=== PATIENT | male | born 1965 | race Caucasian/White ===

== ENCOUNTER 2017-01-24 19:42 | Observation (INO) ==
--- NOTE | 2017-01-24 19:49 | Emergency Department Note ---
Disposition Clinical Impression: Hyponatremia Urinary tract infection Qualifiers: Urinary tract infection type: catheter-associated UTI Indwelling urinary catheter type: indwelling urethral catheter Encounter type: initial encounter Qualified Code(s): T83.511A - Infection and inflammatory reaction due to indwelling urethral catheter, initial encounter; N39.0 - Urinary tract infection , site not specified Disposition: Admitted As Inpatient Condition: Good Referrals: NO,PCP [Primary Care Provider] - Forms: ED Satisfaction Letter Time of Disposition: 21:53 General Adult HPI - General Chief complaint: ED Urogenital-Male Stated complaint: possible UTI Time Seen by Provider: 01/24/17 19:46 - History of Present Illness HPI Narrative: Patient presents to the emergency department for evaluation of fever. States that he had a temperature up to 101 yesterday which has persisted today though currently is asymptomatic following Motrin administration. He states that he feels well without complaints. He has an indwelling suprapubic catheter and has noticed cloudy urine. He reports a history of MS. Denies headache or neck pain. Denies chest pain cough or shortness of breath. Denies abdominal pain vomiting or diarrhea. Denies rash. - Related Data Home Medications Medication Instructions Recorded Confirmed Abacavir Sulfate/Lamivudine 1 each PO DAILY 10/04/15 10/04/15 [Epzicom Tablet] Alprazolam [Xanax] 2 mg PO HS 10/04/15 10/04/15 Baclofen 30 mg PO QID 10/04/15 10/04/15 Cholecalciferol (Vitamin D3) 5,000 unit PO DAILY 10/04/15 10/04/15 [Vitamin D3] Docusate [Colace] 100 mg PO TID 10/04/15 10/04/15 Efavirenz [Sustiva] 50 mg PO DAILY 10/04/15 10/04/15 Fenofibrate Nanocrystallized 145 mg PO DAILY 10/04/15 10/04/15 [Tricor] Furosemide [Lasix] 40 mg PO DAILY 10/04/15 10/04/15 Gabapentin [Neurontin] 600 mg PO QID 10/04/15 10/04/15 Paroxetine [Paxil] 20 mg PO DAILY 10/04/15 10/04/15 Potassium Chloride [K-Tab ER] 10 meq PO DAILY 10/04/15 10/04/15 Pregabalin [Lyrica] 100 mg PO TID 10/04/15 10/04/15 Tizanidine HCl [Zanaflex] 4 mg PO HS 10/04/15 10/04/15 Warfarin [Coumadin] 4 mg PO 1800 10/04/15 10/04/15 Zolpidem [Ambien] 10 mg PO HS 10/04/15 10/04/15 carBAMazepine [Tegretol] 200 mg PO BID 10/04/15 10/04/15 Allergies Allergy/AdvReac Type Severity Reaction Status Date / Time levofloxacin [From Levaquin] Allergy Hives Verified 10/03/15 23:51 methocarbamol [From Robaxin] Allergy Hives Verified 10/03/15 23:51 Constitutional: Reports: fever, chills Eyes: Denies: vision change ENT ED: Denies: ear pain, throat pain, congestion Cardiovascular: Denies: chest pain, palpitations Respiratory: Denies: cough, dyspnea Gastrointestinal: Denies: abdominal pain, vomiting, diarrhea Genitourinary: Reports: other (Cloudy urine) Musculoskeletal: Denies: back pain Integumentary: Denies: rash Neurological: Denies: headache Past Medical History - Past Medical History Medical history: Reports: DVT, HIV/AIDS, hyperlipidemia, pulmonary embolus Surgical history: Reports: non-contributory (Surgical history includes a suprapubic catheter) Psychiatric history: Reports: anxiety, depression - Social History Smoking Status: Never smoker Smokeless Tobacco Status: No Alcohol use: Reports: none Drug use: Reports: none Physical Exam - General Limitations: no limitations General appearance: alert, in no apparent distress (Resting completely cooperative interactive and pleasant) - Eye Eye exam: Present: normal appearance - ENT ENT exam: normal exam, normal oropharynx, mucous membranes moist, TM's normal bilaterally - Neck Neck exam: Present: normal inspection, full ROM. Absent: meningismus - Cardiovascular Cardiovascular exam: Present: regular rate, normal rhythm, normal heart sounds - Abdominal Exam Abdominal exam: Present: soft, Non-Tender, normal bowel sounds - Extremities Exam Extremities exam: Present: normal capillary refill. Absent: pedal edema, joint swelling, calf tenderness - Neurological Exam Neurological exam: Present: alert, oriented X3 - Psychiatric Psychiatric exam: Present: normal affect, normal mood - Skin Skin exam: Present: warm, dry, intact. Absent: rash Course Vital Signs Temperature 98.0 F 01/24/17 19:43 Pulse Rate 73 01/24/17 19:43 Respiratory Rate 18 01/24/17 19:43 Blood Pressure 98/56 01/24/17 19:43 O2 Sat by Pulse Oximetry 95 01/24/17 19:43 Temperature 98.0 F 01/24/17 19:54 Pulse Rate 73 01/24/17 19:54 Respiratory Rate 18 01/24/17 19:54 Blood Pressure 98/56 01/24/17 19:54 O2 Sat by Pulse Oximetry 95 01/24/17 19:54 Oxygen Delivery Oxygen Delivery Room Air Medical Decision Making - MDM Narrative Medical decision making narrative: Patient has had slight hypotension, patient and his mother well-versed in his medical history and states that his baseline systolic blood pressure is approximately 80. The patient is currently afebrile. He is not tachycardic. His lactate is normal. Patient will be admitted to the hospitalist service secondary to his hyponatremia and urinary tract infection. Patient was administered vitamin K by mouth and his INR would be monitored as well. Patient is not anemic and there are no current signs of bleeding. I discussed the case with Dr. Gonzalez he was amenable to admission to this facility - Lab Data Lab results reviewed: Yes I reviewed the patient's lab results. Result diagrams: 01/24/17 19:56 01/24/17 19:56 Lab Results 01/24/17 01/24/17 01/24/17 Range/Units 19:56 19:56 19:56 WBC 14.4 H (4.3-11.1) K/mcL RBC 3.66 L (4.19-5.50) M/mcL Hgb 11.4 L (12.9-16.9) g/dL Hct 31.4 L (37.5-50.1) % MCV 85.8 (83.0-100.0) fL MCH 31.1 (28.0-33.3) pg MCHC 36.3 H (31.6-35.5) g/dL RDW 12.6 (11.5-14.5) % Plt Count 189 (140-400) K/mcL MPV 8.9 L (9.4-12.4) fL Immature Gran % 0.4 (0-4) % Seg Neutrophils % 87.6 % Lymphocytes % 6.6 % Monocytes % 4.7 % Eosinophils % 0.3 % Basophils % 0.4 % Neutrophils # 12.6 H (1.6-8.9) K/mcL Lymphocytes # 1.0 (0.6-4.6) K/mcL Monocytes # 0.7 (0.0-1.3) K/mcL Eosinophils # 0.0 (0.0-0.6) K/mcL Basophils # 0.1 (0.0-0.2) K/mcL PT 110.7 H* (9.4-12.1) Seconds INR 9.6 H* VBG Lactic Acid (0.5-2.2) mmol/L Sodium 125 L (136-145) mEq/L Potassium 3.7 (3.5-4.5) mEq/L Chloride 93 L (98-109) mEq/L Carbon Dioxide 20 (19-29) mEq/L BUN 14 (8-26) mg/dL Creatinine 0.97 (0.72-1.25) mg/dL Est GFR ( Amer) > 60 (> 60) Est GFR (Non-Af Amer) > 60 (> 60) BUN/Creatinine Ratio 14 (6-26) Glucose 115 H (70-99) mg/dL Calculated Osmolality 261 L (280-300) Calcium 8.6 (8.6-10.8) mg/dL Urine Color (Yellow) Urine Clarity (Clear) Urine pH (5.0-8.0) pH Units Ur Specific [place] (1.010-1.025) Urine Protein (Neg-Trace) mg/dL Urine Glucose (UA) (Normal) mg/dL Urine Ketones (Negative) mg/dL Urine Blood (Negative) Urine Nitrite (Negative) Urine Bilirubin (Negative) Urine Urobilinogen (Normal) mg/dL Ur Leukocyte Esterase (Negative) Urine Microscopic RBC (0-3) per hpf Urine Microscopic WBC (0-3) per hpf Ur Squamous Epith Cells (None-Few) per lpf Amorphous Sediment (Few) Urine Bacteria (None-Few) per hpf Ur Culture Indicated? (NO) 01/24/17 01/24/17 Range/Units 20:20 20:50 WBC (4.3-11.1) K/mcL RBC (4.19-5.50) M/mcL Hgb (12.9-16.9) g/dL Hct (37.5-50.1) % MCV (83.0-100.0) fL MCH (28.0-33.3) pg MCHC (31.6-35.5) g/dL RDW (11.5-14.5) % Plt Count (140-400) K/mcL MPV (9.4-12.4) fL Immature Gran % (0-4) % Seg Neutrophils % % Lymphocytes % % Monocytes % % Eosinophils % % Basophils % % Neutrophils # (1.6-8.9) K/mcL Lymphocytes # (0.6-4.6) K/mcL Monocytes # (0.0-1.3) K/mcL Eosinophils # (0.0-0.6) K/mcL Basophils # (0.0-0.2) K/mcL PT (9.4-12.1) Seconds INR VBG Lactic Acid 1.5 (0.5-2.2) mmol/L Sodium (136-145) mEq/L Potassium (3.5-4.5) mEq/L Chloride (98-109) mEq/L Carbon Dioxide (19-29) mEq/L BUN (8-26) mg/dL Creatinine (0.72-1.25) mg/dL Est GFR ( Amer) (> 60) Est GFR (Non-Af Amer) (> 60) BUN/Creatinine Ratio (6-26) Glucose (70-99) mg/dL Calculated Osmolality (280-300) Calcium (8.6-10.8) mg/dL Urine Color Yellow (Yellow) Urine Clarity Cloudy A (Clear) Urine pH 6.0 (5.0-8.0) pH Units Ur Specific [place] 1.010 (1.010-1.025) Urine Protein Trace (Neg-Trace) mg/dL Urine Glucose (UA) Normal (Normal) mg/dL Urine Ketones Negative (Negative) mg/dL Urine Blood Large H (Negative) Urine Nitrite Negative (Negative) Urine Bilirubin Negative (Negative) Urine Urobilinogen Normal (Normal) mg/dL Ur Leukocyte Esterase Large H (Negative) Urine Microscopic RBC 15-30 H (0-3) per hpf Urine Microscopic WBC 15-30 H (0-3) per hpf Ur Squamous Epith Cells Moderate H (None-Few) per lpf Amorphous Sediment Few (Few) Urine Bacteria Many H (None-Few) per hpf Ur Culture Indicated? YES A (NO) - Radiology Data Radiology results reviewed: Yes I reviewed the patient's radiology results.
[2017-01-24] MEDS ORDERED: 0.9 % Sodium Chloride 1,000 ML IVC ONE (20:00)
[2017-01-24 20:13] LABS: Basophils # 0.1 K/mcL (0.0-0.2); Basophils % 0.4 %; Eosinophils % 0.3 %; Hematocrit 31.4 % (37.5-50.1); Hemoglobin 11.4 g/dL (12.9-16.9); Immature Granulocytes % 0.4 % (0-4); Lymphocytes % 6.6 %; Mean Corpuscular HGB Conc 36.3 g/dL (31.6-35.5); Mean Corpuscular Hemoglobin 31.1 pg (28.0-33.3); Mean Corpuscular Volume 85.8 fL (83.0-100.0); Mean Platelet Volume 8.9 fL (9.4-12.4); Monocytes # 0.7 K/mcL (0.0-1.3); Monocytes % 4.7 %; Neutrophils # 12.6 K/mcL (1.6-8.9); Platelet Count 189 K/mcL (140-400); Red Blood Count 3.66 M/mcL (4.19-5.50); Red Cell Distribution Width 12.6 % (11.5-14.5); Segmented Neutrophils % 87.6 %
[2017-01-24 20:24] LABS: BUN/Creatinine Ratio 14 (6-26); Blood Urea Nitrogen 14 mg/dL (8-26); Calcium 8.6 mg/dL (8.6-10.8); Carbon Dioxide 20 mEq/L (19-29); Chloride 93 mEq/L (98-109); Glucose 115 mg/dL (70-99); Osmolality,Calculated 261 (280-300); Potassium 3.7 mEq/L (3.5-4.5); Sodium 125 mEq/L (136-145); eGFR For African Americans > 60 (> 60); eGFR For Non-African Americans > 60 (> 60)
[2017-01-24 20:52] LABS: Bilirubin,Urine Negative (Negative); Blood,Urine Large (Negative); Clarity,Urine Cloudy (Clear); Color,Urine Yellow (Yellow); Glucose,Urine (UA) Normal (Normal); Ketones,Urine Negative (Negative); Leukocyte Esterase,Urine Large (Negative); Nitrite,Urine Negative (Negative); Protein,Urine Trace mg/dL (Neg-Trace); Urobilinogen,Urine Normal (Normal)
[2017-01-24 21:05] LABS: Prothrombin Time 110.7 Seconds (9.4-12.1)
[2017-01-24 21:06] LABS: INR 9.6
[2017-01-24 21:19] LABS: RBC,Urine 15-30 per hpf (0-3); Squamous Epithelial Cell,Urine Moderate per lpf (None-Few); WBC,Urine 15-30 per hpf (0-3)
[2017-01-24 21:20] LABS: Amorphous Sediment,Urine Few (Few); Bacteria,Urine Many per hpf (None-Few)
[2017-01-24] MEDS ORDERED: *HR* Phytonadione 5 MG TABLET PO ONE (21:50)
[2017-01-24] MEDS ORDERED: Piperacillin/Tazobactam 3.375 GM in D5% in Water (Mini-Bag+) 100 ML IVPB ONE (21:53)
[2017-01-24] MEDS: 0.9 % Sodium Chloride 1,000 ML IVC SCH (22:18)
[2017-01-25] MEDS ORDERED: Piperacillin/Tazobactam 3.375 GM in D5% in Water (Mini-Bag+) 100 ML IVPB SCH (06:00)
[2017-01-25 06:12] LABS: Basophils # 0.1 K/mcL (0.0-0.2); Basophils % 0.4 %; Eosinophils % 0.1 %; Hematocrit 32.4 % (37.5-50.1); Hemoglobin 11.7 g/dL (12.9-16.9); Immature Granulocytes % 0.5 % (0-4); Lymphocytes # 0.5 K/mcL (0.6-4.6); Lymphocytes % 3.5 %; Mean Corpuscular HGB Conc 36.1 g/dL (31.6-35.5); Mean Corpuscular Volume 85.7 fL (83.0-100.0); Mean Platelet Volume 9.5 fL (9.4-12.4); Monocytes # 0.6 K/mcL (0.0-1.3); Monocytes % 4.3 %; Neutrophils # 11.7 K/mcL (1.6-8.9); Platelet Count 197 K/mcL (140-400); Red Blood Count 3.78 M/mcL (4.19-5.50); Red Cell Distribution Width 12.6 % (11.5-14.5); Segmented Neutrophils % 91.2 %
[2017-01-25 06:37] LABS: BUN/Creatinine Ratio 15 (6-26); Blood Urea Nitrogen 13 mg/dL (8-26); Calcium 8.5 mg/dL (8.6-10.8); Carbon Dioxide 20 mEq/L (19-29); Chloride 100 mEq/L (98-109); Glucose 141 mg/dL (70-99); Osmolality,Calculated 276 (280-300); Potassium 3.5 mEq/L (3.5-4.5); Sodium 132 mEq/L (136-145); eGFR For African Americans > 60 (> 60); eGFR For Non-African Americans > 60 (> 60)
[2017-01-25] MEDS ORDERED: EFAVIRENZ PO SCH (09:00)
[2017-01-25] MEDS ORDERED: Cholecalciferol (D-3) 1,000 UNIT TABLET PO SCH (09:00)
[2017-01-25] MEDS ORDERED: carBAMazepine 200 MG TABLET PO SCH (09:00)
[2017-01-25] MEDS ORDERED: LAMIVUDINE PO SCH (09:00)
[2017-01-25] MEDS ORDERED: Fenofibrate 54 MG TABLET PO SCH (09:00)
[2017-01-25] MEDS ORDERED: Baclofen 10 MG TABLET PO SCH (09:00)
[2017-01-25] MEDS ORDERED: ABACAVIR SULFATE PO SCH (09:00)
[2017-01-25] MEDS ORDERED: Gabapentin 300 MG CAPSULE PO SCH (09:00)
[2017-01-25] MEDS: 0.9 % Sodium Chloride 1,000 ML IVC SCH (09:14)
--- NOTE | 2017-01-25 11:47 | Internal Med History&Physical ---
Date of Encounter: 01/25/17 Time of Encounter: 11:15 Assessment and Plan (1) Urinary tract infection Current visit: Yes Status: Acute He was given Rocephin and Zosyn in emergency room. Qualifiers: Urinary tract infection type: catheter-associated UTI Indwelling urinary catheter type: unspecified Encounter type: initial encounter Qualified Code( s): T83.511A - Infection and inflammatory reaction due to indwelling urethral catheter, initial encounter; N39.0 - Urinary tract infection, site not specified (2) Hyponatremia Current visit: Yes Status: Acute His Lasix dose will be reduced. Normal saline IV was ordered through the emergency room. Internal Medicine - H&P: HPI Chief complaint: Fever Admitted From: Home Plans for Post Hospital Care: Home History of present illness: Mr. Mccullough is a 51 year old male who came to emergency room stating he developed a fever the evening of January 23. When it had not resolved by the following day he decided to come to emergency room for evaluation. He was found to have leukocytosis with left shift. It was felt he possibly had UTI although he has chronic suprapubic catheter in place. He was admitted to [facility] floor for ongoing care needs. He states he has had 1 previous urinary infection since the suprapubic catheter was placed approximately 5 years ago. He had indwelling Redd catheter prior to that for neurogenic bladder secondary to multiple sclerosis. He denies other kidney or bladder disorders. His neurologic history is significant for diagnosis of multiple sclerosis 2004. He states he has an aggressive form of the disease and has been bedridden since 2005. He follows regularly with a [facility] neurologist. He denies large distribution strokes or seizures. His infectious disease history is significant for HIV diagnosed 2004. He follows with a [facility] ID specialist. Past Med Surg Social Fam HX - Past Medical History Medical history: DVT, HIV/AIDS, hyperlipidemia, pulmonary embolus Psychiatric history: anxiety, depression - Past Surgical History Surgical History: non-contributory - Social History Smoking Status: Never smoker Smokeless Tobacco Status: No Alcohol use: none Drug use: none Internal Medicine - H&P: Meds Abacavir Sulfate/Lamivudine [Epzicom Tablet] 1 each PO DAILY 10/04/15 [History] Alprazolam [Xanax] 2 mg PO HS 10/04/15 [History] Baclofen 30 mg PO QID 10/04/15 [History] Cholecalciferol (Vitamin D3) [Vitamin D3] 5,000 unit PO DAILY 10/04/15 [History] Docusate [Colace] 100 mg PO TID 10/04/15 [History] Efavirenz [Sustiva] 50 mg PO DAILY 10/04/15 [History] Fenofibrate Nanocrystallized [Tricor] 145 mg PO DAILY 10/04/15 [History] Furosemide [Lasix] 40 mg PO DAILY 10/04/15 [History] Gabapentin [Neurontin] 600 mg PO QID 10/04/15 [History] Paroxetine [Paxil] 20 mg PO DAILY 10/04/15 [History] Potassium Chloride [K-Tab ER] 10 meq PO BID 10/04/15 [History] Pregabalin [Lyrica] 100 mg PO TID 10/04/15 [History] Tizanidine HCl [Zanaflex] 4 mg PO HS 10/04/15 [History] Warfarin [Coumadin] 4 mg PO 1800 10/04/15 [History] Zolpidem [Ambien] 10 mg PO HS 10/04/15 [History] carBAMazepine [Tegretol] 200 mg PO BID 10/04/15 [History] Allergies levofloxacin [From Levaquin] Allergy (Verified 01/24/17 22:01) Hives methocarbamol [From Robaxin] Allergy (Verified 01/24/17 22:01) Hives All Systems PM: A 10-system review of systems was performed and is negative for pertinent findings except as documented above in the HPI. Review of systems: Gen.: He states his weight has been stable past few months Cardiovascular: He has history of DVT/pulmonary embolism several years ago and has remained on Coumadin since then. He denies hypertension AK heart failure or angina. He is nonambulatory. Respiratory: He smoked from age [age] up to 2 packs per day. He denies chronic lung disease and does not wear home oxygen. GI: He denies disorders of his liver gallbladder or exocrine pancreas : As per history of present illness Neurologic: As per history of present illness. He states he has peripheral neuropathy. Endocrine: He has hyperlipidemia but denies diabetes or thyroid disease Hematologic/oncologic: He had anemia on blood work in emergency room. He denies internal malignancies Psychiatric: He has depression but denies anxiety or other mental health issues Musk skeletal: He denies arthritis gout or other bone joint or muscle disorders. - Constitutional Vitals: Temp Pulse Resp BP Pulse Ox 98.7 F 72 14 84/36 94 01/25/17 10:25 01/25/17 10:25 01/25/17 10:25 01/25/17 10:25 01/25/17 10:25 Exam: Gen.: He is well-developed well-nourished male lying in bed who appears in no acute distress HEENT: Head is atraumatic and normocephalic. Eyes: EOMI. There is no scleral icterus. Mouth: Mucosa is moist. Neck: Supple and nontender. There is no thyromegaly or adenopathy noted. Heart: Regular without murmurs gallops or ectopics Lungs: No wheezes or crackles are heard. Abdomen: Soft and nontender. No masses or guarding are noted. He has a superpubic catheter in place Extremities: He is wearing heel protectors. He has foot drop bilaterally. Dorsalis pedis and posterior tibial pulses are trace-1+ palpable bilaterally. His feet are warm to touch. There is no edema. Neurologic: Mental status: He is talkative and seems to be a fair to good historian. His response time is slow to many questions but his answers are appropriate. Cranial nerves: Smile is symmetric. Forehead wrinkles bilaterally. Tongue protrudes midline. EOMI. Motor: There is no pronator drift. Cerebellar: Finger to nose testing shows tremor from arm weakness bilaterally. Skin: Warm and dry Internal Med - H&P Results - Labs CBC & Chem 7: 01/25/17 05:37 01/25/17 05:37 Labs: Short CBC 01/25/17 Range/Units 05:37 WBC 12.8 H (4.3-11.1) K/mcL Hgb 11.7 L (12.9-16.9) g/dL Hct 32.4 L (37.5-50.1) % Plt Count 197 (140-400) K/mcL Neutrophils # 11.7 H (1.6-8.9) K/mcL BMP 01/25/17 05:37 Sodium 132 L D Potassium 3.5 Chloride 100 Carbon Dioxide 20 BUN 13 Creatinine 0.88 Glucose 141 H Calcium 8.5 L - VTE Reasons for not Prescribing Prophylaxis: Not indicated-Anticoagulated or INR therapeutic
--- NOTE | 2017-01-25 12:09 | Discharge Summary ---
Date of Encounter: 01/25/17 Time of Encounter: 11:15 - Discharge Diagnosis (1) Urinary tract infection Priority: Primary Status: Acute Qualifiers: Urinary tract infection type: catheter-associated UTI Indwelling urinary catheter type: unspecified Encounter type: initial encounter Qualified Code( s): T83.511A - Infection and inflammatory reaction due to indwelling urethral catheter, initial encounter; N39.0 - Urinary tract infection, site not specified (2) Hyponatremia Priority: Secondary Status: Acute - Discharge Medications Prescriptions: Lactobacillus [Culturelle] 1 each PO BID #10 cap.sprink Sulfamethoxazole/Trimeth DS [Bactrim DS] 1 each PO BID #10 tablet Home Medications: Abacavir Sulfate/Lamivudine [Epzicom Tablet] 1 each PO DAILY 10/04/15 [History] Alprazolam [Xanax] 2 mg PO HS 10/04/15 [History] Baclofen 30 mg PO QID 10/04/15 [History] Cholecalciferol (Vitamin D3) [Vitamin D3] 5,000 unit PO DAILY 10/04/15 [History] Docusate [Colace] 100 mg PO TID 10/04/15 [History] Efavirenz [Sustiva] 50 mg PO DAILY 10/04/15 [History] Fenofibrate Nanocrystallized [Tricor] 145 mg PO DAILY 10/04/15 [History] Gabapentin [Neurontin] 600 mg PO QID 10/04/15 [History] Paroxetine [Paxil] 20 mg PO DAILY 10/04/15 [History] Potassium Chloride [K-Tab ER] 10 meq PO BID 10/04/15 [History] Pregabalin [Lyrica] 100 mg PO TID 10/04/15 [History] Tizanidine HCl [Zanaflex] 4 mg PO HS 10/04/15 [History] Zolpidem [Ambien] 10 mg PO HS 10/04/15 [History] carBAMazepine [Tegretol] 200 mg PO BID 10/04/15 [History] Furosemide [Lasix] 20 mg PO DAILY #0 01/25/17 [Rx] Lactobacillus [Culturelle] 1 each PO BID #10 cap.sprink 01/25/17 [Rx] Sulfamethoxazole/Trimeth DS [Bactrim DS] 1 each PO BID #10 tablet 01/25/17 [Rx] Warfarin [Coumadin] 4 mg PO 1800 #0 01/25/17 [Rx] Allergies/Adverse Reactions: Allergies levofloxacin [From Levaquin] Allergy (Verified 01/24/17 22:01) Hives methocarbamol [From Robaxin] Allergy (Verified 01/24/17 22:01) Hives Date of admission: 01/24/17 22:04 Primary care physician: Anika Crane - Patient Status Disposition: Home, Self-Care Condition: Good Functional capacity at discharge: bed bound Overall status at discharge: patient is progressing back to baseline - Discharge Instructions Follow Up With: Anika Crane MD [Non-Partnered Physician] - 1 week - Diet and Activity Activity: resume usual activities as tolerated Diet: advance to your usual diet Hospital course: Mr. Mccullough is a 51 year old male who came to emergency room stating he developed a fever the evening of January 23. When it had not resolved by the following day he decided to come to emergency room for evaluation. He was found to have leukocytosis with left shift. It was felt he possibly had UTI although he has chronic suprapubic catheter in place. He was admitted to [facility] for ongoing care needs. Initial orders were written by the emergency room physician. I saw him on January 25 and performed a history, physical and discharge. His temperature lonnie to 100.3 in the brand lead hours of January 25 but had returned to normal range by the time I saw him. WBC improved to 12.8 on January 25. I felt he could be discharged home on oral antibiotic. He will be given Septra DS for 5 days with probiotic. His Lasix dose will be reduced to 20 mg daily. His sodium had improved to 132 on the day of discharge. He was given a dose of vitamin K and his INR had improved to 4.0 on the day of discharge. He will hold Coumadin for 3 days at discharge. His PCP can follow up on labs as needed. He will be discharged home to follow with his PCP within one week. - Time Spent with Patient Total time spent providing and/or coordinating discharge services: - Constitutional Vitals: Temp Pulse Resp BP Pulse Ox 98.7 F 72 14 84/36 94 01/25/17 10:25 01/25/17 10:25 01/25/17 10:25 01/25/17 10:25 01/25/17 10:25 - VTE Reasons for not Prescribing Prophylaxis: Not indicated-Anticoagulated or INR therapeutic
[2017-01-25 13:44] VITALS: BP 93/49
[2017-01-25 16:48] LABS: blaKPC Carbapenem-Resist Gene Not Detected (Not Detect); mecA Methicillin-Resist Gene Not Detected (Not Detect)
[2017-01-25 16:49] LABS: Acinetobacter baumannii by PCR Not Detected (Not Detect); Enterococcus by PCR Not Detected (Not Detect); Staphylococcus aureus by PCR Not Detected (Not Detect); Streptococcus agalactiae(B)PCR Not Detected (Not Detect); Streptococcus by PCR Not Detected (Not Detect); Streptococcus pneumoniae PCR Not Detected (Not Detect); Streptococcus pyogenes (A) PCR Not Detected (Not Detect); vanA/B Vancomycin-Resist Genes Not Detected (Not Detect)
[2017-01-25 16:50] LABS: Candida albicans by PCR Not Detected (Not Detect); Candida glabrata by PCR Not Detected (Not Detect); Candida krusei by PCR Not Detected (Not Detect); Candida parapsilosis by PCR Not Detected (Not Detect); Candida tropicalis by PCR Not Detected (Not Detect); Escherichia coli by PCR ***DETECTED*** (Not Detect); Klebsiella oxytoca by PCR Not Detected (Not Detect); Klebsiella pneumoniae by PCR Not Detected (Not Detect); Pseudomonas aeruginosa by PCR Not Detected (Not Detect); Serratia marcescens by PCR Not Detected (Not Detect)
== END 2017-01-25 14:25 | disposition home or self-care (01) ==
LOC: EMEROOPIK 19:42 → INPPIK 19:42
PROVIDERS: ADMIT Internal Medicine; ATTEND Internal Medicine

== ENCOUNTER 2018-12-16 01:30 | Inpatient (IN) ==
[2018-12-16] MEDS ORDERED: 0.9 % Sodium Chloride 1,000 ML IVC ONE ×2 (01:49→03:48)
--- NOTE | 2018-12-16 01:52 | Emergency Department Note ---
Disposition Clinical Impression: Prolonged INR Urinary tract infection Qualifiers: Urinary tract infection type: site unspecified Hematuria presence: with hematuria Qualified Code(s): N39.0 - Urinary tract infection, site not specified; R31.9 - Hematuria, unspecified Disposition: Admitted As Inpatient Condition: Fair Referrals: Anika Crane MD [Primary Care Provider] - Forms: ED Satisfaction Letter Time of Disposition: 04:01 Male Urogenital HPI - General Chief complaint: ED Urogenital-Male Stated complaint: blood in urine Time Seen by Provider: 12/16/18 01:42 Source: patient, family, EMS Mode of arrival: EMS Limitations: physical limitation Nursing Notes Reviewed: Yes Vital Signs Reviewed: Yes - History of Present Illness Pt Subjective Complaint: other (Hematuria) Onset (ago): hour(s) (Today) Duration: constant Location: other (Coming through suprapubic catheter) Improves with: none Worsens with: none indwelling catheter Reports: fever (Sat 101 temperature), other (Patient has had a cough over the past week and recently took a Z-Mark for that. He does not feel like its any worse but it does not feel like its any better either) - Related Data Home Medications Medication Instructions Recorded Confirmed Abacavir Sulfate/Lamivudine 1 each PO DAILY 10/04/15 12/16/18 [Epzicom Tablet] Alprazolam [Xanax] 2 mg PO HS 10/04/15 12/16/18 Baclofen 30 mg PO QID 10/04/15 12/16/18 Cholecalciferol (Vitamin D3) 5,000 unit PO DAILY 10/04/15 12/16/18 [Vitamin D3] Docusate [Colace] 100 mg PO TID 10/04/15 12/16/18 Efavirenz [Sustiva] 50 mg PO DAILY 10/04/15 12/16/18 Gabapentin [Neurontin] 600 mg PO QID 10/04/15 12/16/18 Paroxetine [Paxil] 20 mg PO DAILY 10/04/15 12/16/18 Potassium Chloride [K-Tab ER] 10 meq PO BID 10/04/15 12/16/18 Tizanidine HCl [Zanaflex] 4 mg PO HS 10/04/15 12/16/18 Zolpidem [Ambien] 10 mg PO HS 10/04/15 12/16/18 carBAMazepine [Tegretol] 200 mg PO BID 10/04/15 12/16/18 Furosemide [Lasix] 40 mg PO DAILY 04/29/18 12/16/18 Glatiramer Acetate [Copaxone] 40 mg SQ QMWF 04/29/18 12/16/18 Oxycodone HCl/Acetaminophen 1 each PO Q6H 04/29/18 12/16/18 [Percocet 5-325 mg Tablet] Warfarin [Coumadin] 2 mg PO QMWF 04/29/18 12/16/18 Previous Rx's Medication Instructions Recorded Ascorbic Acid [Vitamin C] 500 mg PO DAILY@0630 #30 tab 04/05/17 Lactobacillus [Culturelle] 1 each PO BID #6 cap.sprink 04/05/17 Allergies Allergy/AdvReac Type Severity Reaction Status Date / Time atorvastatin [From Lipitor] Allergy Muscle Pain Verified 12/16/18 01:38 levofloxacin [From Levaquin] Allergy Hives Verified 04/28/18 23:59 methocarbamol [From Robaxin] Allergy Hives Verified 04/28/18 23:59 All systems ED: reviewed and negative except as stated. Constitutional: Reports: fever, chills ENT ED: Denies: ear pain, throat pain, congestion Cardiovascular: Denies: chest pain, palpitations Respiratory: Reports: cough. Denies: dyspnea, wheezes Gastrointestinal: Denies: abdominal pain, vomiting, diarrhea Genitourinary: Reports: hematuria Integumentary: Denies: rash Past Medical History - Past Medical History Attestation: Yes The following information was validated with the patient. Source: patient, old records reviewed, obtained from family, nursing notes reviewed Medical history: Reports: DVT, HIV/AIDS, hyperlipidemia, pulmonary embolus, other Surgical history: Reports: non-contributory Psychiatric history: Reports: anxiety, depression - Social History Smoking Status: Former smoker Smokeless Tobacco Status: No Alcohol use: Reports: none Drug use: Reports: none Physical Exam - General Limitations: physical limitation General appearance: alert, in no apparent distress - Head Head exam: atraumatic, normocephalic, normal inspection - Eye Eye exam: Present: normal appearance, PERRL, EOMI. Absent: scleral icterus, conjunctival injection - ENT ENT exam: normal exam, normal oropharynx, mucous membranes moist, normal external ear exam - Neck Neck exam: Present: normal inspection, full ROM, trachea midline. Absent: meningismus - Chest Chest inspection: Present: normal inspection, symmetric chest wall rise. Absent: tenderness - Respiratory Respiratory exam: Present: normal lung sounds bilaterally. Absent: respiratory distress, wheezes - Cardiovascular Cardiovascular exam: Present: regular rate, normal rhythm, irregular rhythm - Abdominal Exam Abdominal Exam: Present: soft, Non-Tender, normal bowel sounds - Extremities Exam Extremities exam: Absent: tenderness - Neurological Exam Neurological exam: Present: alert, oriented X3 - Psychiatric Psychiatric exam: Present: normal affect, normal mood - Skin Skin exam: Present: warm, dry. Absent: rash Course Course Narrative: Patient presents with a chief complaint of hematuria coming through his suprapubic catheter. In the past its been related to infection. Actually has a 101 temperature on arrival. He has had a cough that was recently treated with antibiotics so I think we have to consider pneumonia as well. I am doing a septic workup on the patient. I am giving him fluids and I am going to start with Rocephin right off the bat. Disposition will be based on diagnostic resul ts and reevaluation. - Reevaluation(s) Reevaluation #1: Patient's urine came back positive. The chest x-ray was clear. She has urinary tract infection with elevated white count and a fever. He needs to be admitted to the hospital. Is getting a little bit tachycardic although his blood pressure is okay. He is getting second liter of fluid. INR was elevated as well and since he has the hematuria I went ahead and give him a dose of 2.5 mg of vitamin K by mouth. I discussed case with the hospitalist and will be admitting the patient to the hospital. Time: 04:00 - Consultations Consultation #1: Dr. Gonzalez, hospitalist - I discussed the case with the hospitalist. He gave orders to admit the patient. Time: 03:59 Vital Signs Temperature 101.2 F H 12/16/18 01:30 Pulse Rate 94 12/16/18 01:30 Respiratory Rate 16 12/16/18 01:30 Blood Pressure 143/77 12/16/18 01:30 O2 Sat by Pulse Oximetry 96 12/16/18 01:30 Temperature 101.2 F H 12/16/18 01:30 Pulse Rate 122 12/16/18 03:30 Respiratory Rate 16 12/16/18 03:30 Blood Pressure 125/88 12/16/18 03:30 O2 Sat by Pulse Oximetry 96 12/16/18 03:30 Oxygen Delivery Oxygen Delivery Room Air Urogenital-Male - Medical Records Medical records reviewed: Yes I reviewed the patient's medical records. - Lab Data Lab results reviewed: Yes I reviewed the patient's lab results. Result diagrams: 12/16/18 02:20 12/16/18 02:20 Lab Results 12/16/18 12/16/18 12/16/18 Range/Units 02:20 02:20 02:20 WBC 21.0 H (4.3-11.1) K/mcL RBC 5.33 (4.19-5.50) M/mcL Hgb 16.3 (12.9-16.9) g/dL Hct 46.5 (37.5-50.1) % MCV 87.2 (83.0-100.0) fL MCH 30.6 (28.0-33.3) pg MCHC 35.1 (31.6-35.5) g/dL RDW 13.3 (11.5-14.5) % Plt Count 349 (140-400) K/mcL MPV 9.3 L (9.4-12.4) fL Immature Gran % 0.5 (0-4) % Seg Neutrophils % 88.0 % Lymphocytes % 6.5 % Monocytes % 4.4 % Eosinophils % 0.3 % Basophils % 0.3 % Neutrophils # 18.5 H (1.6-8.9) K/mcL Lymphocytes # 1.4 (0.6-4.6) K/mcL Monocytes # 0.9 (0.0-1.3) K/mcL Eosinophils # 0.1 (0.0-0.6) K/mcL Basophils # 0.1 (0.0-0.2) K/mcL PT (9.4-12.1) Seconds INR APTT (26.0-36.0) Seconds Heparin Anti-Xa, Unfract (0.30-0.70) IU/mL Sodium 133 L (136-145) mEq/L Potassium 3.8 (3.5-5.1) mEq/L Chloride 98 (98-107) mEq/L Carbon Dioxide 28 (23-29) mEq/L BUN 6 (6-20) mg/dL Creatinine 0.83 (0.70-1.30) mg/dL Est GFR ( Amer) > 60 (> 60) Est GFR (Non-Af Amer) > 60 (> 60) BUN/Creatinine Ratio 7 (6-26) Glucose 129 H (70-105) mg/dL Calculated Osmolality 275 L (280-300) Lactic Acid 1.5 (0.5-2.2) mmol/L Calcium 9.4 (8.6-10.3) mg/dL Troponin I < 0.03 (< 0.04) ng/mL Urine Color (Yellow) Urine Clarity (Clear) Urine pH (5.0-8.0) pH Units Ur Specific [place] (1.010-1.025) Urine Protein (Neg-Trace) mg/dL Urine Glucose (UA) (Normal) mg/dL Urine Ketones (Negative) mg/dL Urine Blood (Negative) Urine Nitrite (Negative) Urine Bilirubin (Negative) Urine Urobilinogen (Normal) mg/dL Ur Leukocyte Esterase (Negative) Urine Microscopic RBC (0-3) per hpf Urine Microscopic WBC (0-3) per hpf Ur Culture Indicated? (NO) 12/16/18 12/16/18 Range/Units 02:20 03:04 WBC (4.3-11.1) K/mcL RBC (4.19-5.50) M/mcL Hgb (12.9-16.9) g/dL Hct (37.5-50.1) % MCV (83.0-100.0) fL MCH (28.0-33.3) pg MCHC (31.6-35.5) g/dL RDW (11.5-14.5) % Plt Count (140-400) K/mcL MPV (9.4-12.4) fL Immature Gran % (0-4) % Seg Neutrophils % % Lymphocytes % % Monocytes % % Eosinophils % % Basophils % % Neutrophils # (1.6-8.9) K/mcL Lymphocytes # (0.6-4.6) K/mcL Monocytes # (0.0-1.3) K/mcL Eosinophils # (0.0-0.6) K/mcL Basophils # (0.0-0.2) K/mcL PT 72.3 H* (9.4-12.1) Seconds INR 6.4 H* APTT 113.8 H* (26.0-36.0) Seconds Heparin Anti-Xa, Unfract 0.04 L (0.30-0.70) IU/mL Sodium (136-145) mEq/L Potassium (3.5-5.1) mEq/L Chloride (98-107) mEq/L Carbon Dioxide (23-29) mEq/L BUN (6-20) mg/dL Creatinine (0.70-1.30) mg/dL Est GFR ( Amer) (> 60) Est GFR (Non-Af Amer) (> 60) BUN/Creatinine Ratio (6-26) Glucose (70-105) mg/dL Calculated Osmolality (280-300) Lactic Acid (0.5-2.2) mmol/L Calcium (8.6-10.3) mg/dL Troponin I (< 0.04) ng/mL Urine Color Red A (Yellow) Urine Clarity Slightly Cloudy A (Clear) Urine pH 7.0 (5.0-8.0) pH Units Ur Specific [place] 1.015 (1.010-1.025) Urine Protein 100 H (Neg-Trace) mg/dL Urine Glucose (UA) Normal (Normal) mg/dL Urine Ketones Trace H (Negative) mg/dL Urine Blood Large H (Negative) Urine Nitrite Positive A (Negative) Urine Bilirubin Small H (Negative) Urine Urobilinogen Normal (Normal) mg/dL Ur Leukocyte Esterase Large H (Negative) Urine Microscopic RBC TNTC H (0-3) per hpf Urine Microscopic WBC Present (0-3) per hpf Ur Culture Indicated? YES A (NO) - Radiology Data Radiology results reviewed: Yes I reviewed the patient's radiology results.
[2018-12-16 02:44] LABS: Basophils # 0.1 K/mcL (0.0-0.2); Basophils % 0.3 %; Eosinophils # 0.1 K/mcL (0.0-0.6); Eosinophils % 0.3 %; Hematocrit 46.5 % (37.5-50.1); Hemoglobin 16.3 g/dL (12.9-16.9); Immature Granulocytes % 0.5 % (0-4); Lymphocytes # 1.4 K/mcL (0.6-4.6); Lymphocytes % 6.5 %; Mean Corpuscular HGB Conc 35.1 g/dL (31.6-35.5); Mean Corpuscular Hemoglobin 30.6 pg (28.0-33.3); Mean Corpuscular Volume 87.2 fL (83.0-100.0); Mean Platelet Volume 9.3 fL (9.4-12.4); Monocytes # 0.9 K/mcL (0.0-1.3); Monocytes % 4.4 %; Platelet Count 349 K/mcL (140-400); Red Blood Count 5.33 M/mcL (4.19-5.50); Red Cell Distribution Width 13.3 % (11.5-14.5)
[2018-12-16 02:51] LABS: Neutrophils # 18.5 K/mcL (1.6-8.9)
[2018-12-16 03:03] LABS: INR 6.4; Prothrombin Time 72.3 Seconds (9.4-12.1)
[2018-12-16 03:04] LABS: BUN/Creatinine Ratio 7 (6-26); Blood Urea Nitrogen 6 mg/dL (6-20); Calcium 9.4 mg/dL (8.6-10.3); Carbon Dioxide 28 mEq/L (23-29); Chloride 98 mEq/L (98-107); Glucose 129 mg/dL (70-105); Osmolality,Calculated 275 (280-300); Potassium 3.8 mEq/L (3.5-5.1); Sodium 133 mEq/L (136-145); eGFR For Non-African Americans > 60 (> 60)
[2018-12-16 03:05] LABS: Troponin I < 0.03 ng/mL (< 0.04)
[2018-12-16 03:07] LABS: Bilirubin,Urine Small (Negative); Blood,Urine Large (Negative); Clarity,Urine Slightly Cloudy (Clear); Color,Urine Red (Yellow); Glucose,Urine (UA) Normal (Normal); Ketones,Urine Trace mg/dL (Negative); Leukocyte Esterase,Urine Large (Negative); Nitrite,Urine Positive (Negative); Protein,Urine 100 mg/dL (Neg-Trace); Specific Gravity,Urine 1.015 (1.010-1.025); Urobilinogen,Urine Normal (Normal)
[2018-12-16 03:08] LABS: Activated Partial Thrombo Time 113.8 Seconds (26.0-36.0)
[2018-12-16 03:13] LABS: Heparin anti-factor XA UFH 0.04 IU/mL (0.30-0.70)
[2018-12-16 03:13] LABS: RBC,Urine TNTC per hpf (0-3); WBC,Urine Present per hpf (0-3)
[2018-12-16] MEDS ORDERED: Ondansetron 4 MG/2 ML VIAL IVP ONE (03:55)
[2018-12-16] MEDS ORDERED: *HR* Phytonadione 5 MG TABLET PO ONE ×3 (03:56→08:45)
[2018-12-16] MEDS ORDERED: Gabapentin 300 MG CAPSULE PO SCH ×2 (04:02→09:00)
[2018-12-16] MEDS ORDERED: Baclofen 10 MG TABLET PO SCH ×2 (04:04→09:00)
[2018-12-16] MEDS ORDERED: 0.9 % Sodium Chloride 1,000 ML IVC SCH (04:41)
[2018-12-16] MEDS ORDERED: Ondansetron 4 MG/2 ML VIAL IVP PRN (04:41)
[2018-12-16] MEDS ORDERED: Naloxone 0.4 MG/ML INJ IVP PRN (04:41)
[2018-12-16] MEDS: Ascorbic Acid 500 MG TABLET PO SCH (05:38)
[2018-12-16] MEDS: *HR* OxyCODONE/APAP 5/325 TABLET PO SCH ×4 (05:39→22:40)
[2018-12-16] MEDS: Baclofen 10 MG TABLET PO SCH ×4 (08:43→22:06)
[2018-12-16] MEDS: Gabapentin 300 MG CAPSULE PO SCH ×4 (08:44→22:05)
[2018-12-16] MEDS: Furosemide 40 MG TABLET PO SCH (08:45)
[2018-12-16] MEDS: EFAVIRENZ PO SCH (08:45)
[2018-12-16] MEDS: ABACAVIR SULFATE PO SCH (08:45)
[2018-12-16] MEDS: Cholecalciferol (D-3) 1,000 UNIT TABLET PO SCH (08:45)
[2018-12-16] MEDS: LAMIVUDINE PO SCH (08:45)
[2018-12-16] MEDS: carBAMazepine 200 MG TABLET PO SCH ×2 (08:45→22:05)
[2018-12-16] MEDS: cefTRIAXone 1,000 MG in Water for inj. (sterile) 20 ML 10 ML IVPB SCH (08:46)
[2018-12-16] MEDS ORDERED: Lactobacillus 1 EACH CAP.SPRINK PO SCH (09:00)
[2018-12-16] MEDS ORDERED: (Glatiramer Acetate [Copaxone] 40 MG) SQ SCH (09:00)
--- NOTE | 2018-12-16 12:07 | Internal Med History&Physical ---
Date of Encounter: 12/16/18 Time of Encounter: 11:35 Assessment and Plan (1) Urinary tract infection Current visit: Yes Status: Acute He was given Rocephin in emergency room. This will be continued with lactobacillus. Urine culture has been ordered. Qualifiers: Urinary tract infection type: site unspecified Hematuria presence: with hematuria Qualified Code(s): N39.0 - Urinary tract infection, site not specified; R31.9 - Hematuria, unspecified (2) Prolonged INR Current visit: Yes Status: Acute Coumadin has been held and vitamin K was ordered. Repeat INR will be checked in a.m. Internal Medicine - H&P: HPI Chief complaint: Hematuria Admitted From: Emergency Dept Plans for Post Hospital Care: Home History of present illness: Mr. Mccullough is a 53 year old male who came to emergency room stating his home health aide had noted hematuria in his catheter collection bag [place] hours earlier. She changed the suprapubic catheter but the hematuria persisted. He came to emergency room was found to have leukocytosis with left shift and elevated INR. He was admitted to [facility] floor for ongoing care needs. He was hospitalized last at [facility] March 2017 with diagnosis of UTI. He reports he has had 3 previous significant urinary infections since a suprapubic catheter was placed approximately 2011. He had indwelling Redd catheter prior to that for neurogenic bladder secondary to multiple sclerosis. He denies other kidney or bladder disorders. He reports he took a Z-Mark for "cough" finishing 12/13/2018. Past Med Surg Social Fam HX - Past Medical History Medical history: DVT, HIV/AIDS, hyperlipidemia, pulmonary embolus, other Additional medical history: MS Psychiatric history: anxiety, depression - Past Surgical History Surgical History: non-contributory - Social History Smoking Status: Former smoker Smokeless Tobacco Status: No Alcohol use: none Drug use: none Internal Medicine - H&P: Meds Abacavir Sulfate/Lamivudine [Epzicom Tablet] 1 each PO DAILY 10/04/15 [History] Alprazolam [Xanax] 2 mg PO HS 10/04/15 [History] Baclofen 30 mg PO QID 10/04/15 [History] Cholecalciferol (Vitamin D3) [Vitamin D3] 5,000 unit PO DAILY 10/04/15 [History] Docusate [Colace] 100 mg PO TID 10/04/15 [History] Efavirenz [Sustiva] 50 mg PO DAILY 10/04/15 [History] Gabapentin [Neurontin] 600 mg PO QID 10/04/15 [History] Paroxetine [Paxil] 20 mg PO DAILY 10/04/15 [History] Potassium Chloride [K-Tab ER] 10 meq PO BID 10/04/15 [History] Tizanidine HCl [Zanaflex] 4 mg PO HS 10/04/15 [History] Zolpidem [Ambien] 10 mg PO HS 10/04/15 [History] carBAMazepine [Tegretol] 200 mg PO BID 10/04/15 [History] Ascorbic Acid [Vitamin C] 500 mg PO DAILY@0630 #30 tab 04/05/17 [Rx] Lactobacillus [Culturelle] 1 each PO BID #6 cap.sprink 04/05/17 [Rx] Furosemide [Lasix] 40 mg PO DAILY 04/29/18 [History] Glatiramer Acetate [Copaxone] 40 mg SQ QMWF 04/29/18 [History] Oxycodone HCl/Acetaminophen [Percocet 5-325 mg Tablet] 1 each PO Q6H 04/29/18 [History] Warfarin [Coumadin] 2 mg PO QMWF 04/29/18 [History] Allergy/AdvReac Type Severity Reaction Status Date / Time atorvastatin [From Lipitor] Allergy Muscle Pain Verified 12/16/18 01:38 levofloxacin [From Levaquin] Allergy Hives Verified 04/28/18 23:59 methocarbamol [From Robaxin] Allergy Hives Verified 04/28/18 23:59 All Systems PM: A 10-system review of systems was performed and is negative for pertinent findings except as documented above in the HPI. Review of systems: Review of systems from his March 2017 [facility] hospitalization were reviewed and revised as below. Gen.: He states his weight has been stable the past few months. I doubt recorded admission weight of 51.71 kg is accurate. Cardiovascular: He has history of DVT/pulmonary embolism several years ago and has remained on Coumadin since then. He reports pro times have been stable on recent checks. He took Z-Mark within the past week as per history of present il lness. He denies hypertension CT heart failure or angina. He is nonambulatory. Respiratory: He smoked from age [age] up to 2 packs per day. He denies chronic lung disease and does not wear home oxygen. GI: He denies disorders of his liver gallbladder or exocrine pancreas : As per history of present illness Neurologic: He was diagnosed with MS 2004. He reports he has an aggressive form of the disease and has been bedridden since 2005. He follows with a [facility] neurologist. He denies large distribution strokes or seizures. He states he has peripheral neuropathy. Infectious disease: He was diagnosed with HIV 2004 and follows with a [facility] area ID specialist Endocrine: He has hyperlipidemia but denies diabetes or thyroid disease Hematologic/oncologic: He has had anemia in the past which has now resolved. He denies internal malignancies Psychiatric: He has depression but denies anxiety or other mental health issues Musk skeletal: He denies arthritis gout or other bone joint or muscle disorders. - Constitutional Vitals: Temp Pulse Resp BP Pulse Ox 98.1 F 106 18 92/53 94 12/16/18 10:15 12/16/18 10:15 12/16/18 10:15 12/16/18 10:15 12/16/18 10:15 Exam: Gen.: He is a well-developed well-nourished male lying in bed who appears in no acute distress at present time HEENT: Head is atraumatic and normocephalic. Eyes: EOMI. There is no scleral icterus. Mouth: Mucosa is moist. Neck: Supple and nontender. There is no thyromegaly or adenopathy noted. Heart: Regular without murmurs gallops or ectopics Lungs: No wheezes or crackles are heard. Abdomen: Soft and nontender. No masses or guarding are noted. Extremities: There is no cyanosis of his fingernails. He has dropfoot bilat erally and atrophy of the calf muscles. There is no pitting edema. Neurologic: Mental status: He is talkative and a good historian. Cranial nerves: Smile is symmetric. Forehead wrinkles bilaterally. Tongue protrudes midline. EOMI. Motor: There is no pronator drift. Cerebellar: Finger to nose is intact bilaterally. Skin: Warm and dry Internal Med - H&P Results - Labs CBC & Chem 7: 12/16/18 02:20 12/16/18 02:20 Labs: Short CBC 12/16/18 Range/Units 02:20 WBC 21.0 H (4.3-11.1) K/mcL Hgb 16.3 (12.9-16.9) g/dL Hct 46.5 (37.5-50.1) % Plt Count 349 (140-400) K/mcL Neutrophils # 18.5 H (1.6-8.9) K/mcL BMP 12/16/18 02:20 Sodium 133 L Potassium 3.8 Chloride 98 Carbon Dioxide 28 BUN 6 Creatinine 0.83 Glucose 129 H Calcium 9.4 Cardiac Enzymes 12/16/18 Range/Units 02:20 Troponin I < 0.03 (< 0.04) ng/mL Urine 12/16/18 Range/Units 03:04 Urine Color Red A (Yellow) Urine Clarity Slightly Cloudy A (Clear) Urine pH 7.0 (5.0-8.0) pH Units Ur Specific [place] 1.015 (1.010-1.025) Urine Protein 100 H (Neg-Trace) mg/dL Urine Glucose (UA) Normal (Normal) mg/dL - Impressions ITS Impressions Chest X-Ray 12/16/18 01:48 IMPRESSION: 1. No active pulmonary disease. D/ / Lee Glaser MD / Lee Glaser MD Interpreting Provider: Lee Glaser MD - VTE Reasons for not Prescribing Prophylaxis: Not indicated-Anticoagulated or INR therapeutic
[2018-12-16] MEDS ORDERED: ALPRAZolam 1 MG TABLET PO SCH (21:00)
[2018-12-16] MEDS ORDERED: tiZANidine 4 MG TABLET PO SCH (21:00)
[2018-12-16] MEDS: Lactobacillus 1 EACH CAP.SPRINK PO SCH (22:06)
[2018-12-17] MEDS: *HR* OxyCODONE/APAP 5/325 TABLET PO SCH ×2 (06:43→09:54)
[2018-12-17] MEDS: Ascorbic Acid 500 MG TABLET PO SCH (06:46)
[2018-12-17 07:11] LABS: Basophils # 0.1 K/mcL (0.0-0.2); Basophils % 0.5 %; Eosinophils # 0.2 K/mcL (0.0-0.6); Eosinophils % 1.4 %; Hematocrit 36.8 % (37.5-50.1); Hemoglobin 12.8 g/dL (12.9-16.9); Immature Granulocytes % 0.5 % (0-4); Lymphocytes # 2.3 K/mcL (0.6-4.6); Mean Corpuscular HGB Conc 34.8 g/dL (31.6-35.5); Mean Corpuscular Hemoglobin 30.3 pg (28.0-33.3); Mean Corpuscular Volume 87.2 fL (83.0-100.0); Mean Platelet Volume 9.5 fL (9.4-12.4); Monocytes # 0.7 K/mcL (0.0-1.3); Monocytes % 6.3 %; Neutrophils # 7.3 K/mcL (1.6-8.9); Platelet Count 274 K/mcL (140-400); Red Blood Count 4.22 M/mcL (4.19-5.50); Red Cell Distribution Width 13.4 % (11.5-14.5); Segmented Neutrophils % 69.3 %
[2018-12-17 07:18] LABS: INR 1.7; Prothrombin Time 19.2 Seconds (9.4-12.1)
[2018-12-17] MEDS: carBAMazepine 200 MG TABLET PO SCH (09:36)
[2018-12-17] MEDS: Baclofen 10 MG TABLET PO SCH ×2 (09:36→14:40)
[2018-12-17] MEDS: Gabapentin 300 MG CAPSULE PO SCH ×2 (09:36→14:40)
[2018-12-17] MEDS: Cholecalciferol (D-3) 1,000 UNIT TABLET PO SCH (09:36)
[2018-12-17] MEDS: ABACAVIR SULFATE PO SCH (09:37)
[2018-12-17] MEDS: EFAVIRENZ PO SCH (09:37)
[2018-12-17] MEDS: Lactobacillus 1 EACH CAP.SPRINK PO SCH (09:37)
[2018-12-17] MEDS: LAMIVUDINE PO SCH (09:37)
[2018-12-17] MEDS: cefTRIAXone 1,000 MG in Water for inj. (sterile) 20 ML 10 ML IVPB SCH (09:37)
[2018-12-17] MEDS: Furosemide 40 MG TABLET PO SCH (09:54)
[2018-12-17 14:46] VITALS: BP 92/60
--- NOTE | 2018-12-17 15:40 | Discharge Summary ---
Orders not resulted at time of discharge: Pending orders 12/16/18 02:35 Culture,Blood [BC] Stat Date of Encounter: 12/17/18 Time of Encounter: 15:32 - Discharge Diagnosis (1) Urinary tract infection Priority: Primary Status: Acute Qualifiers: Urinary tract infection type: site unspecified Hematuria presence: with hematuria Qualified Code(s): N39.0 - Urinary tract infection, site not specified; R31.9 - Hematuria, unspecified (2) Prolonged INR Priority: Secondary Status: Resolved Hospital course: Mr. Mccullough is a 53 year old male who came to emergency room stating his home health aide had noticed hematuria in his catheter collection bag a few hours earlier. She changed the suprapubic catheter but the hematuria persisted. He came to emergency room and was found to have leukocytosis with left shift and elevated INR. He was admitted to [facility] floor for ongoing care needs. Initial orders were written by the emergency room physician. I saw him on December 16 and performed the history and physical. He was started on Rocephin empirica lly in emergency room. Lactobacillus was added. Urine culture report showed mixed organisms. WBC normalized to 10.6 with resolution of left shift by December 17. He will continue with antibiotics and probiotic for 2 additional days at discharge. Vitamin K was given in emergency room for hematuria with elevated INR. The INR had decreased to 1.7 by the following day. He will resume Coumadin at his home dose regimen of 2 mg/3 mg every other day alternating. Hemoglobin decrease to 12.8 on December 17. Hematuria had cleared. His PCP can monitor labs. He will follow with his PCP within 1 week. - Time Spent with Patient Total time spent providing and/or coordinating discharge services: - Discharge Medications Prescriptions: New Sulfamethoxazole/Trimeth DS [Bactrim DS] 1 each PO BID #4 tablet Continued Zolpidem [Ambien] 10 mg PO HS Efavirenz [Sustiva] 50 mg PO DAILY Abacavir Sulfate/Lamivudine [Epzicom Tablet] 1 each PO DAILY Tizanidine HCl [Zanaflex] 4 mg PO HS Baclofen 30 mg PO QID Alprazolam [Xanax] 2 mg PO HS Cholecalciferol (Vitamin D3) [Vitamin D3] 5,000 unit PO DAILY Docusate [Colace] 100 mg PO TID Potassium Chloride [K-Tab ER] 10 meq PO BID Paroxetine [Paxil] 20 mg PO DAILY Gabapentin [Neurontin] 600 mg PO QID carBAMazepine [Tegretol] 200 mg PO BID Ascorbic Acid [Vitamin C] 500 mg PO DAILY@0630 #30 tab Oxycodone HCl/Acetaminophen [Percocet 5-325 mg Tablet] 1 each PO Q6H Glatiramer Acetate [Copaxone] 40 mg SQ QMWF Furosemide [Lasix] 40 mg PO DAILY Warfarin [Coumadin] 2 mg PO QMWF Lactobacillus [Culturelle] 1 each PO BID #4 cap.sprink Home Medications: Abacavir Sulfate/Lamivudine [Epzicom Tablet] 1 each PO DAILY 10/04/15 [History] Alprazolam [Xanax] 2 mg PO HS 10/04/15 [History] Baclofen 30 mg PO QID 10/04/15 [History] Cholecalciferol (Vitamin D3) [Vitamin D3] 5,000 unit PO DAILY 10/04/15 [History] Docusate [Colace] 100 mg PO TID 10/04/15 [History] Efavirenz [Sustiva] 50 mg PO DAILY 10/04/15 [History] Gabapentin [Neurontin] 600 mg PO QID 10/04/15 [History] Paroxetine [Paxil] 20 mg PO DAILY 10/04/15 [History] Potassium Chloride [K-Tab ER] 10 meq PO BID 10/04/15 [History] Tizanidine HCl [Zanaflex] 4 mg PO HS 10/04/15 [History] Zolpidem [Ambien] 10 mg PO HS 10/04/15 [History] carBAMazepine [Tegretol] 200 mg PO BID 10/04/15 [History] Ascorbic Acid [Vitamin C] 500 mg PO DAILY@0630 #30 tab 04/05/17 [Rx] Furosemide [Lasix] 40 mg PO DAILY 04/29/18 [History] Glatiramer Acetate [Copaxone] 40 mg SQ QMWF 04/29/18 [History] Oxycodone HCl/Acetaminophen [Percocet 5-325 mg Tablet] 1 each PO Q6H 04/29/18 [History] Warfarin [Coumadin] 2 mg PO QMWF 04/29/18 [History] Lactobacillus [Culturelle] 1 each PO BID #4 cap.sprink 12/17/18 [Rx] Sulfamethoxazole/Trimeth DS [Bactrim DS] 1 each PO BID #4 tablet 12/17/18 [Rx] Allergies/Adverse Reactions: Allergy/AdvReac Type Severity Reaction Status Date / Time atorvastatin [From Lipitor] Allergy Muscle Pain Verified 12/16/18 01:38 levofloxacin [From Levaquin] Allergy Hives Verified 04/28/18 23:59 methocarbamol [From Robaxin] Allergy Hives Verified 04/28/18 23:59 Date of admission: 12/16/18 12:17 Primary care physician: Anika Crane MD - Constitutional Vitals: Temp Pulse Resp BP Pulse Ox 97.5 F L 87 18 92/60 95 12/17/18 14:42 12/17/18 14:42 12/17/18 14:42 12/17/18 14:42 12/17/18 14:42 - Patient Status Disposition: Home Health Service Condition: Fair - Discharge Instructions Follow Up With: Anika Crane MD [Primary Care Provider] - 1 week - Diet and Activity Activity: resume usual activities as tolerated Diet: advance to your usual diet - VTE Reasons for not Prescribing Prophylaxis: Not indicated-Anticoagulated or INR therapeutic
--- NOTE | 2018-12-17 15:47 | Physician Discharge Referral ---
Home Health/Hosp Referral Info Transfer to: Home Health Attending Provider: Carlos Provider in Charge Post Discharge: PCP Ochoa) - Diagnosis (1) Urinary tract infection Priority: Primary Status: Acute (2) Prolonged INR Priority: Secondary Status: Resolved - Respiratory Orders Smoking Cessation: Smoking cessation has been advised. For more information, call the [place] Tobacco Quit Line at 2-532-VEJI-NOW. - Diet/Nutrition Diet/Nutrition Orders: Regular - Activity Activity Orders: Chair - Services Needed Following services are medically necessary services: Nursing, Home Health Aide, Physical Therapy, Occupational Therapy - Transfer Medications Prescriptions: Sulfamethoxazole/Trimeth DS [Bactrim DS] 1 each PO BID #4 tablet Lactobacillus [Culturelle] 1 each PO BID #4 cap.sprink Home Medications: Abacavir Sulfate/Lamivudine [Epzicom Tablet] 1 each PO DAILY 10/04/15 [History] Alprazolam [Xanax] 2 mg PO HS 10/04/15 [History] Baclofen 30 mg PO QID 10/04/15 [History] Cholecalciferol (Vitamin D3) [Vitamin D3] 5,000 unit PO DAILY 10/04/15 [History] Docusate [Colace] 100 mg PO TID 10/04/15 [History] Efavirenz [Sustiva] 50 mg PO DAILY 10/04/15 [History] Gabapentin [Neurontin] 600 mg PO QID 10/04/15 [History] Paroxetine [Paxil] 20 mg PO DAILY 10/04/15 [History] Potassium Chloride [K-Tab ER] 10 meq PO BID 10/04/15 [History] Tizanidine HCl [Zanaflex] 4 mg PO HS 10/04/15 [History] Zolpidem [Ambien] 10 mg PO HS 10/04/15 [History] carBAMazepine [Tegretol] 200 mg PO BID 10/04/15 [History] Ascorbic Acid [Vitamin C] 500 mg PO DAILY@0630 #30 tab 04/05/17 [Rx] Furosemide [Lasix] 40 mg PO DAILY 04/29/18 [History] Glatiramer Acetate [Copaxone] 40 mg SQ QMWF 04/29/18 [History] Oxycodone HCl/Acetaminophen [Percocet 5-325 mg Tablet] 1 each PO Q6H 04/29/18 [History] Warfarin [Coumadin] 2 mg PO QMWF 04/29/18 [History] Lactobacillus [Culturelle] 1 each PO BID #4 cap.sprink 12/17/18 [Rx] Sulfamethoxazole/Trimeth DS [Bactrim DS] 1 each PO BID #4 tablet 12/17/18 [Rx] Allergies/Adverse Reactions: Allergy/AdvReac Type Severity Reaction Status Date / Time atorvastatin [From Lipitor] Allergy Muscle Pain Verified 12/16/18 01:38 levofloxacin [From Levaquin] Allergy Hives Verified 04/28/18 23:59 methocarbamol [From Robaxin] Allergy Hives Verified 04/28/18 23:59 Certification: Further, I certify that my clinical findings support that this patient is homebound (i.e. absences from home require considerable and taxing effort and are for medical reasons or yarsani services or infrequently or short duration when for other reasons) because: Homebound Reason: Leaving home requires considerable and taxing effort due to condition (Inability to walk secondary to MS) Attestation: My signature below is to certify that this patient is under my care and that I, or nurse practitioner, or a physician's assistant associate full professor working with me, has a [id number] encounter with this patient.
== END 2018-12-17 17:45 | disposition home health service (06) | DRG 699 ==
LOC: INPPIK 01:30 → EMEROOPIK 01:30 → INPPIK 04:10
PROVIDERS: ADMIT Internal Medicine; ATTEND Internal Medicine

== ENCOUNTER 2019-01-23 19:11 | Inpatient (IN) ==
[2019-01-23] MEDS ORDERED: cefTRIAXone 1,000 MG in Water for inj. (sterile) 20 ML 10 ML IVP ONE (19:15)
[2019-01-23] MEDS ORDERED: Levofloxacin 750 MG/150 ML 750 MG/150 ML BAG IVPB ONE (19:15)
--- NOTE | 2019-01-23 19:18 | Emergency Department Note ---
Disposition Clinical Impression: Urinary tract infection Qualifiers: Urinary tract infection type: catheter-associated UTI Indwelling urinary catheter type: cystostomy catheter Encounter type: initial encounter Qualified Code(s): T83.510A - Infection and inflammatory reaction due to cystostomy catheter, initial encounter Sepsis Qualifiers: Sepsis type: sepsis due to unspecified organism Qualified Code(s): A41.9 - Sepsis, unspecified organism Disposition: Admitted As Inpatient Condition: Fair Time of Disposition: 21:00 Fever HPI - General Chief Complaint: ED Fever Stated Complaint: Fever onset yesterday Time Seen by Provider: 01/23/19 19:15 Source: patient, EMS Mode of arrival: EMS Limitations: physical limitation Nursing Notes Reviewed: Yes Vital Signs Reviewed: Yes - History of Present Illness HPI Narrative: Patient relates increased fever for about 24 hours. His concern for UTI as his urine has been dark and malodorous. He has an indwelling suprapubic catheter. He does not have any discomfort the abdomen or flanks. He states then forgot 102 at 6 PM with Brit's. He took some ibuprofen and is coming by EMS for evaluation. EMS did establish an IV due to a heart rate in the 130s. He denies pain anywhere other than his usual discomfort in his legs. He relates that he "just feels weird". Patient has had a cough but no shortness of breath. Has not had sore throat. He has had ill exposure to an aunt with upper respiratory infection. Is not having nausea, vomiting or diarrhea. He denies sweats. He has had similar before with sepsis from urinary source. Pt Subjective Complaint: fever, malaise Onset (ago): day(s) (1) Temperature Source: oral Context: sick contacts Associated symptoms: Reports: chills, rigors, cough. Denies: myalgias, headache, rhinorrhea, nasal congestion, sore throat, stiff neck, chest pain, dyspnea, abdominal pain, nausea, vomiting, diarrhea, dysuria, rash, altered mental status, night sweats, weight loss Improves with: ibuprofen Worsens with: nothing Treatments prior to arrival fever: ibuprofen - Related Data Home Medications Medication Instructions Recorded Confirmed Abacavir Sulfate/Lamivudine 1 each PO DAILY 10/04/15 12/16/18 [Epzicom Tablet] Alprazolam [Xanax] 2 mg PO HS 10/04/15 12/16/18 Baclofen 30 mg PO QID 10/04/15 12/16/18 Cholecalciferol (Vitamin D3) 5,000 unit PO DAILY 10/04/15 12/16/18 [Vitamin D3] Docusate [Colace] 100 mg PO TID 10/04/15 12/16/18 Efavirenz [Sustiva] 50 mg PO DAILY 10/04/15 12/16/18 Gabapentin [Neurontin] 600 mg PO QID 10/04/15 12/16/18 Paroxetine [Paxil] 20 mg PO DAILY 10/04/15 12/16/18 Potassium Chloride [K-Tab ER] 10 meq PO BID 10/04/15 12/16/18 Tizanidine HCl [Zanaflex] 4 mg PO HS 10/04/15 12/16/18 Zolpidem [Ambien] 10 mg PO HS 10/04/15 12/16/18 carBAMazepine [Tegretol] 200 mg PO BID 10/04/15 12/16/18 Furosemide [Lasix] 40 mg PO DAILY 04/29/18 12/16/18 Glatiramer Acetate [Copaxone] 40 mg SQ QMWF 04/29/18 12/16/18 Oxycodone HCl/Acetaminophen 1 each PO Q6H 04/29/18 12/16/18 [Percocet 5-325 mg Tablet] Warfarin [Coumadin] 2 mg PO QMWF 04/29/18 12/16/18 Previous Rx's Medication Instructions Recorded Ascorbic Acid [Vitamin C] 500 mg PO DAILY@0630 #30 tab 04/05/17 Lactobacillus [Culturelle] 1 each PO BID #4 cap.sprink 12/17/18 Sulfamethoxazole/Trimeth DS 1 each PO BID #4 tablet 12/17/18 [Bactrim DS] Allergies Allergy/AdvReac Type Severity Reaction Status Date / Time atorvastatin [From Lipitor] Allergy Muscle Pain Verified 12/16/18 01:38 levofloxacin [From Levaquin] Allergy Hives Verified 04/28/18 23:59 methocarbamol [From Robaxin] Allergy Hives Verified 04/28/18 23:59 All systems ED: reviewed and negative except as stated. Fever PMH - Past Medical History Medical history: Reports: DVT, HIV/AIDS, hyperlipidemia, pulmonary embolus, ot her Surgical history: Reports: other (Suprapubic catheter) Psychiatric history: Reports: anxiety, depression - Social History Smoking Status: Former smoker Alcohol use: Reports: none Drug use: Reports: none Physical Exam - General Limitations: no limitations General appearance: alert, in no apparent distress - Head Head exam: atraumatic, normocephalic, normal inspection - Eye Eye exam: Present: normal appearance, PERRL, EOMI - ENT ENT exam: normal exam, normal oropharynx, mucous membranes moist - Neck Neck exam: Present: normal inspection, full ROM, trachea midline. Absent: tenderness, meningismus, lymphadenopathy - Chest Chest inspection: Present: normal inspection, symmetric chest wall rise. Absent: tenderness - Respiratory Respiratory exam: Present: normal lung sounds bilaterally. Absent: respiratory distress, wheezes, prolonged expiratory phase - Cardiovascular Cardiovascular exam: Present: regular rate, normal rhythm, tachycardia, normal heart sounds - Abdominal Exam Abdominal exam: Present: soft, Non-Tender, normal bowel sounds. Absent: tenderness, distention, guarding, rebound, rigidity - Extremities Exam Extremities exam: Present: normal inspection, normal capillary refill. Absent: tenderness, pedal edema - Expanded Lower Extremity Exam Neurovascular/Tendon exam: Present: normal capillary refill Gait: not tested/not observed - Neurological Exam Neurological exam: Present: alert, oriented X3 - Psychiatric Psychiatric exam: Present: normal affect, normal mood - Skin Skin exam: Present: warm, dry, intact, normal color. Absent: cyanosis, diaphoresis, pallor Course Course Narrative: Patient meets criteria for sepsis evaluation. IV fluids, labs, imaging and EKG have been ordered on arrival. He is started on Zosyn and Rocephin intravenously. Blood cultures and urinalysis with culture are ordered. His urine appears clear but cloudy at this time. Awaiting return of his laboratories, care has been turned over to Dr. Martino for his ultimate disposition. - Reevaluation(s) Reevaluation #1: Patient was turned over to my care at 2000 hrs. patient is resting comfortably he is receiving fluids he is actually feeling better now he states that he just recently been hospitalized for sepsis couple weeks ago as result this was not a surprise to him he states that he has had no cough no congestion he is feeling much improved since receiving the fluids he denies any diarrhea or melena this time patient knows that we are waiting for urine spoke with the patient and his family very agreeable with admission we have made sure that he is received 30 ML's per kilo based upon his body weight the patient be transferred to [facility] sepsis protocol was followed admission Is alert oriented well-nourished well-hydrated male he is bed ridden his skin is without rash or lesions pupils round nares are patent tympanic membranes checked Rosoff supple trachea is midline chest is clear to all station heart regular rate and rhythm abdomen is soft supple positive bowel sounds suprapubic catheter is in place that is draining a clear urine actually showed no breakdown of tissue is mentation is intact Spoke with Dr. Gonzalez he is agreed for admission transferred to [facility] buttock started in the ER Vital Signs Temperature 102.0 F H 01/23/19 19:15 Pulse Rate 136 01/23/19 19:15 Respiratory Rate 18 01/23/19 19:15 Blood Pressure 92/53 01/23/19 19:15 O2 Sat by Pulse Oximetry 98 01/23/19 19:15 Temperature 98.4 F 01/24/19 06:31 Pulse Rate 80 01/24/19 06:31 Respiratory Rate 26 01/24/19 06:31 Blood Pressure 70/43 01/24/19 10:08 O2 Sat by Pulse Oximetry 92 01/24/19 06:31 Oxygen Delivery Oxygen Delivery Room Air Fever - Differential Diagnosis Likely: fever of occult origin, community acquired pneumonia, pyelonephritis, sepsis, SIRS - Medical Records Medical records reviewed: Yes I reviewed the patient's medical records. - Lab Data Lab results reviewed: Yes I reviewed the patient's lab results. Result diagrams: 01/24/19 05:36 01/24/19 05:36 Lab Results 01/23/19 01/23/19 01/23/19 Range/Units 19:34 19:34 19:34 WBC 13.0 H (4.3-11.1) K/mcL RBC 4.41 (4.19-5.50) M/mcL Hgb 13.8 (12.9-16.9) g/dL Hct 37.9 (37.5-50.1) % MCV 85.9 (83.0-100.0) fL MCH 31.3 (28.0-33.3) pg MCHC 36.4 H (31.6-35.5) g/dL RDW 13.9 (11.5-14.5) % Plt Count 203 (140-400) K/mcL MPV 9.0 L (9.4-12.4) fL Immature Gran % 0.3 (0-4) % Seg Neutrophils % 85.5 % Lymphocytes % 7.4 % Monocytes % 5.9 % Eosinophils % 0.3 % Basophils % 0.6 % Neutrophils # 11.1 H (1.6-8.9) K/mcL Lymphocytes # 1.0 (0.6-4.6) K/mcL Monocytes # 0.8 (0.0-1.3) K/mcL Eosinophils # 0.0 (0.0-0.6) K/mcL Basophils # 0.1 (0.0-0.2) K/mcL PT 23.9 H (9.4-12.1) Seconds INR 2.1 APTT 53.4 H (26.0-36.0) Seconds Sodium 133 L (136-145) mEq/L Potassium 3.2 L (3.5-5.1) mEq/L Chloride 99 (98-107) mEq/L Carbon Dioxide 23 (23-29) mEq/L BUN 8 (6-20) mg/dL Creatinine 0.91 (0.70-1.30) mg/dL Est GFR ( Amer) > 60 (> 60) Est GFR (Non-Af Amer) > 60 (> 60) BUN/Creatinine Ratio 9 (6-26) Glucose 134 H (70-105) mg/dL Calculated Osmolality 276 L (280-300) Lactic Acid (0.5-2.2) mmol/L Calcium 8.8 (8.6-10.3) mg/dL Phosphorus 2.2 L (2.7-4.5) mg/dL Magnesium 1.7 (1.6-2.6) mg/dL Total Bilirubin 0.3 (0.3-1.0) mg/dL Direct Bilirubin 0.0 (0.0-0.2) mg/dL Indirect Bilirubin 0.3 (0.0-1.2) mg/dL AST 17 (13-39) Units/L ALT 16 (7-52) Units/L Alkaline Phosphatase 72 (34-104) Units/L Troponin I < 0.03 (< 0.04) ng/mL Serum Total Protein 6.7 (6.4-8.9) g/dL Albumin 3.5 (3.5-5.7) g/dL Globulin 3.2 (2.4-3.5) g/dL Albumin/Globulin Ratio 1.1 (1.1-2.2) Urine Color (Yellow) Urine Clarity (Clear) Urine pH (5.0-8.0) pH Units Ur Specific [place] (1.010-1.025) Urine Protein (Neg-Trace) mg/dL Urine Glucose (UA) (Normal) mg/dL Urine Ketones (Negative) mg/dL Urine Blood (Negative) Urine Nitrite (Negative) Urine Bilirubin (Negative) Urine Urobilinogen (Normal) mg/dL Ur Leukocyte Esterase (Negative) Urine Microscopic RBC (0-3) per hpf Urine Microscopic WBC (0-3) per hpf Ur Squamous Epith Cells (None-Few) per lpf Urine Bacteria (None-Few) per hpf Granular Casts (None Seen) per lpf WBC Casts (None Seen) per lpf Ur Culture Indicated? (NO) 01/23/19 01/23/19 Range/Units 19:34 20:30 WBC (4.3-11.1) K/mcL RBC (4.19-5.50) M/mcL Hgb (12.9-16.9) g/dL Hct (37.5-50.1) % MCV (83.0-100.0) fL MCH (28.0-33.3) pg MCHC (31.6-35.5) g/dL RDW (11.5-14.5) % Plt Count (140-400) K/mcL MPV (9.4-12.4) fL Immature Gran % (0-4) % Seg Neutrophils % % Lymphocytes % % Monocytes % % Eosinophils % % Basophils % % Neutrophils # (1.6-8.9) K/mcL Lymphocytes # (0.6-4.6) K/mcL Monocytes # (0.0-1.3) K/mcL Eosinophils # (0.0-0.6) K/mcL Basophils # (0.0-0.2) K/mcL PT (9.4-12.1) Seconds INR APTT (26.0-36.0) Seconds Sodium (136-145) mEq/L Potassium (3.5-5.1) mEq/L Chloride (98-107) mEq/L Carbon Dioxide (23-29) mEq/L BUN (6-20) mg/dL Creatinine (0.70-1.30) mg/dL Est GFR ( Amer) (> 60) Est GFR (Non-Af Amer) (> 60) BUN/Creatinine Ratio (6-26) Glucose (70-105) mg/dL Calculated Osmolality (280-300) Lactic Acid 2.6 H (0.5-2.2) mmol/L Calcium (8.6-10.3) mg/dL Phosphorus (2.7-4.5) mg/dL Magnesium (1.6-2.6) mg/dL Total Bilirubin (0.3-1.0) mg/dL Direct Bilirubin (0.0-0.2) mg/dL Indirect Bilirubin (0.0-1.2) mg/dL AST (13-39) Units/L ALT (7-52) Units/L Alkaline Phosphatase (34-104) Units/L Troponin I (< 0.04) ng/mL Serum Total Protein (6.4-8.9) g/dL Albumin (3.5-5.7) g/dL Globulin (2.4-3.5) g/dL Albumin/Globulin Ratio (1.1-2.2) Urine Color Light Yellow (Yellow) Urine Clarity Slightly Cloudy A (Clear) Urine pH 7.0 (5.0-8.0) pH Units Ur Specific [place] 1.015 (1.010-1.025) Urine Protein Negative (Neg-Trace) mg/dL Urine Glucose (UA) Normal (Normal) mg/dL Urine Ketones Negative (Negative) mg/dL Urine Blood Negative (Negative) Urine Nitrite Negative (Negative) Urine Bilirubin Negative (Negative) Urine Urobilinogen Normal (Normal) mg/dL Ur Leukocyte Esterase Moderate H (Negative) Urine Microscopic RBC 0-3 (0-3) per hpf Urine Microscopic WBC 3-5 H (0-3) per hpf Ur Squamous Epith Cells Few (None-Few) per lpf Urine Bacteria Many H (None-Few) per hpf Granular Casts Few H (None Seen) per lpf WBC Casts Few H (None Seen) per lpf Ur Culture Indicated? YES A (NO) - Radiology Data Radiology results reviewed: Yes I reviewed the patient's radiology results. Single view chest x-ray is performed. This does not demonstrate evidence for infiltrate, effusion, pneumothorax, foreign body or heart failure. The cardiac silhouette is normal. I do not see abnormality to the osseous structures of the chest. This is on my interpretation. Impressions Chest X-Ray 01/23/19 19:16 IMPRESSION: No acute cardiopulmonary disease. D/ / Ed Flores MD / Ed Flores MD Interpreting Provider: Ed Flores MD - EKG Data EKG attestation: Yes I reviewed and interpreted this EKG. EKG shows normal: sinus rhythm, axis, intervals, QRS complexes, ST-T waves Rate: tachycardia (140) Interpretation: no acute changes, other (Sinus tachycardia) Critical Care Time Critical Care Time: Yes Total Critical Care Time: 40 Attestation: As this patient did present with signs and symptoms of potential life- threatening illness requiring my urgent intervention, total critical care time in this patient's care has been 40 minutes, not withstanding separately reporta ble procedures. S.B.A.R. - S.B.A.R. Situation: Demographics, MOA Background: Presenting Complaint, Relevant PMH, Meds, & Allergies Assessment: Vital Signs, Course and respsone to treatment, Exam Concerns, Pertinant Lab Results, Outstanding Labs Recommendation: Recommendation based on pending studies, treatments, or consults S.B.A.RMendel Report Given to: Dr. Laura Martino S.B.AOctaviano Repor Time: 20:00
[2019-01-23] MEDS ORDERED: Piperacillin/Tazobactam 3.375 GM in 0.9 % Sodium Chloride Mini Bag 100 ML IVPB ONE (19:30)
[2019-01-23] MEDS ORDERED: Acetaminophen 325 MG TABLET PO ONE (19:31)
[2019-01-23] MEDS: 0.9 % Sodium Chloride 1,000 ML IVC SCH ×2 (19:41→20:56)
[2019-01-23 19:45] LABS: Basophils # 0.1 K/mcL (0.0-0.2); Basophils % 0.6 %; Eosinophils % 0.3 %; Hematocrit 37.9 % (37.5-50.1); Hemoglobin 13.8 g/dL (12.9-16.9); Immature Granulocytes % 0.3 % (0-4); Lymphocytes % 7.4 %; Mean Corpuscular HGB Conc 36.4 g/dL (31.6-35.5); Mean Corpuscular Hemoglobin 31.3 pg (28.0-33.3); Mean Corpuscular Volume 85.9 fL (83.0-100.0); Monocytes # 0.8 K/mcL (0.0-1.3); Monocytes % 5.9 %; Neutrophils # 11.1 K/mcL (1.6-8.9); Platelet Count 203 K/mcL (140-400); Red Blood Count 4.41 M/mcL (4.19-5.50); Red Cell Distribution Width 13.9 % (11.5-14.5); Segmented Neutrophils % 85.5 %
[2019-01-23 19:55] LABS: INR 2.1; Prothrombin Time 23.9 Seconds (9.4-12.1)
[2019-01-23 19:58] LABS: Activated Partial Thrombo Time 53.4 Seconds (26.0-36.0)
[2019-01-23 20:07] LABS: Alanine Aminotransferase 16 Units/L (7-52); Albumin 3.5 g/dL (3.5-5.7); Albumin/Globulin Ratio 1.1 (1.1-2.2); Alkaline Phosphatase 72 Units/L (34-104); Aspartate Amino Transferase 17 Units/L (13-39); BUN/Creatinine Ratio 9 (6-26); Bilirubin,Indirect 0.3 mg/dL (0.0-1.2); Bilirubin,Total 0.3 mg/dL (0.3-1.0); Blood Urea Nitrogen 8 mg/dL (6-20); Calcium 8.8 mg/dL (8.6-10.3); Carbon Dioxide 23 mEq/L (23-29); Chloride 99 mEq/L (98-107); Globulin 3.2 g/dL (2.4-3.5); Glucose 134 mg/dL (70-105); Magnesium 1.7 mg/dL (1.6-2.6); Osmolality,Calculated 276 (280-300); Phosphorous 2.2 mg/dL (2.7-4.5); Potassium 3.2 mEq/L (3.5-5.1); Sodium 133 mEq/L (136-145); Total Protein 6.7 g/dL (6.4-8.9); Troponin I < 0.03 ng/mL (< 0.04); eGFR For African Americans > 60 (> 60); eGFR For Non-African Americans > 60 (> 60)
[2019-01-23 20:39] LABS: Bilirubin,Urine Negative (Negative); Blood,Urine Negative (Negative); Clarity,Urine Slightly Cloudy (Clear); Glucose,Urine (UA) Normal (Normal); Ketones,Urine Negative (Negative); Leukocyte Esterase,Urine Moderate (Negative); Nitrite,Urine Negative (Negative); Protein,Urine Negative (Neg-Trace); Specific Gravity,Urine 1.015 (1.010-1.025); Urobilinogen,Urine Normal (Normal)
[2019-01-23 20:48] LABS: Bacteria,Urine Many per hpf (None-Few); Color,Urine Light Yellow (Yellow); Granular Casts,Urine Few per lpf (None Seen); RBC,Urine 0-3 per hpf (0-3); Squamous Epithelial Cell,Urine Few per lpf (None-Few); White Blood Cell Casts,Urine Few per lpf (None Seen)
[2019-01-23] MEDS ORDERED: Naloxone 0.4 MG/ML INJ IVP PRN (23:45)
[2019-01-23] MEDS ORDERED: cefTRIAXone 2,000 MG in Water for inj. (sterile) 20 ML 20 ML IVPB ONE (23:45)
[2019-01-23] MEDS ORDERED: Ondansetron 4 MG/2 ML VIAL IVP PRN (23:45)
[2019-01-24] MEDS: 0.9 % Sodium Chloride 1,000 ML IVC SCH ×2 (00:19→13:45)
[2019-01-24] MEDS: Lactobacillus 1 EACH CAP.SPRINK PO SCH ×3 (00:36→20:41)
[2019-01-24] MEDS: Gabapentin 300 MG CAPSULE PO SCH ×5 (00:58→20:42)
[2019-01-24] MEDS: Baclofen 10 MG TABLET PO SCH ×5 (00:58→20:41)
[2019-01-24] MEDS: *HR* OxyCODONE/APAP 5/325 TABLET PO SCH ×4 (00:59→18:56)
[2019-01-24] MEDS: tiZANidine 4 MG TABLET PO SCH ×2 (00:59→20:26)
[2019-01-24] MEDS: ALPRAZolam 1 MG TABLET PO SCH ×2 (01:06→20:42)
[2019-01-24] MEDS: Piperacillin/Tazobactam 3.375 GM in 0.9 % Sodium Chloride Mini Bag 100 ML IVPB SCH ×3 (04:00→22:24)
[2019-01-24] MEDS: Ascorbic Acid 500 MG TABLET PO SCH (05:54)
[2019-01-24 06:28] LABS: Basophils # 0.1 K/mcL (0.0-0.2); Basophils % 0.9 %; Eosinophils # 0.2 K/mcL (0.0-0.6); Eosinophils % 1.8 %; Hematocrit 31.4 % (37.5-50.1); Hemoglobin 11.2 g/dL (12.9-16.9); Immature Granulocytes % 0.3 % (0-4); Lymphocytes # 1.5 K/mcL (0.6-4.6); Mean Corpuscular HGB Conc 35.7 g/dL (31.6-35.5); Mean Corpuscular Hemoglobin 31.2 pg (28.0-33.3); Mean Corpuscular Volume 87.5 fL (83.0-100.0); Mean Platelet Volume 10.1 fL (9.4-12.4); Monocytes # 0.7 K/mcL (0.0-1.3); Monocytes % 7.4 %; Neutrophils # 6.6 K/mcL (1.6-8.9); Platelet Count 189 K/mcL (140-400); Red Blood Count 3.59 M/mcL (4.19-5.50); Red Cell Distribution Width 13.9 % (11.5-14.5); Segmented Neutrophils % 72.6 %; White Blood Count 9.1 K/mcL (4.3-11.1)
[2019-01-24 06:55] LABS: Alanine Aminotransferase 14 Units/L (7-52); Albumin 2.8 g/dL (3.5-5.7); Albumin/Globulin Ratio 1.1 (1.1-2.2); Alkaline Phosphatase 55 Units/L (34-104); Aspartate Amino Transferase 16 Units/L (13-39); BUN/Creatinine Ratio 10 (6-26); Bilirubin,Total 0.2 mg/dL (0.3-1.0); Blood Urea Nitrogen 10 mg/dL (6-20); Calcium 7.9 mg/dL (8.6-10.3); Carbon Dioxide 22 mEq/L (23-29); Chloride 106 mEq/L (98-107); Globulin 2.5 g/dL (2.4-3.5); Glucose 138 mg/dL (70-105); Osmolality,Calculated 283 (280-300); Potassium 3.6 mEq/L (3.5-5.1); Sodium 136 mEq/L (136-145); Total Protein 5.3 g/dL (6.4-8.9); eGFR For African Americans > 60 (> 60); eGFR For Non-African Americans > 60 (> 60)
[2019-01-24] MEDS ORDERED: cefTRIAXone 2,000 MG in Water for inj. (sterile) 20 ML 20 ML IVPB ONE (08:00)
[2019-01-24] MEDS: Cholecalciferol (D-3) 1,000 UNIT TABLET PO SCH (09:02)
[2019-01-24] MEDS: Furosemide 40 MG TABLET PO SCH (09:03)
[2019-01-24] MEDS: ABACAVIR SULFATE PO SCH (09:05)
[2019-01-24] MEDS: EFAVIRENZ PO SCH (09:05)
[2019-01-24] MEDS: LAMIVUDINE PO SCH (09:05)
--- NOTE | 2019-01-24 10:06 | Internal Med History&Physical ---
Date of Encounter: 01/24/19 Time of Encounter: 09:35 Assessment and Plan (1) Sepsis Current visit: Yes Status: Acute He was given Rocephin, Levaquin, and Zosyn in emergency room. Pro-calcitonin level will be ordered. IV fluids have been ordered. Qualifiers: Sepsis type: sepsis due to unspecified organism Qualified Code(s): A41.9 - Sepsis, unspecified organism (2) Anemia Current visit: No Status: Acute Anemia testing will be done. Qualifiers: Anemia type: unspecified type Qualified Code(s): D64.9 - Anemia, unspecified Internal Medicine - H&P: HPI Chief complaint: Fevers and chills Admitted From: Emergency Dept Plans for Post Hospital Care: Home History of present illness: Mr. Mccullough is a 53 year old male who came to emergency room stating he developed fevers and chills approximately 24 hours earlier. He denies pain vomiting diarrhea cough or dyspnea. He reports his mother and his mother's sister had similar febrile illnesses a few days earlier. He was evaluated in emergency room and was felt to have possible UTI. He was admitted to [facility] floor for ongoing care needs. He was hospitalized at [facility] approximately 5 weeks ago with diagnosis of UTI and prolonged INR. Past Med Surg Social Fam HX - Past Medical History Medical history: DVT, HIV/AIDS, hyperlipidemia, pulmonary embolus, other Additional medical history: HIV Psychiatric history: anxiety, depression - Past Surgical History Surgical History: other - Social History Smoking Status: Former smoker Smokeless Tobacco Status: No Alcohol use: none Drug use: none Internal Medicine - H&P: Meds Abacavir Sulfate/Lamivudine [Epzicom Tablet] 1 each PO DAILY 10/04/15 [History] Alprazolam [Xanax] 2 mg PO HS 10/04/15 [History] Baclofen 30 mg PO QID 10/04/15 [History] Cholecalciferol (Vitamin D3) [Vitamin D3] 5,000 unit PO DAILY 10/04/15 [History] Docusate [Colace] 100 mg PO TID 10/04/15 [History] Efavirenz [Sustiva] 50 mg PO DAILY 10/04/15 [History] Gabapentin [Neurontin] 600 mg PO QID 10/04/15 [History] Paroxetine [Paxil] 20 mg PO DAILY 10/04/15 [History] Potassium Chloride [K-Tab ER] 10 meq PO BID 10/04/15 [History] Tizanidine HCl [Zanaflex] 4 mg PO HS 10/04/15 [History] Zolpidem [Ambien] 10 mg PO HS 10/04/15 [History] carBAMazepine [Tegretol] 200 mg PO BID 10/04/15 [History] Ascorbic Acid [Vitamin C] 500 mg PO DAILY@0630 #30 tab 04/05/17 [Rx] Furosemide [Lasix] 40 mg PO DAILY 04/29/18 [History] Glatiramer Acetate [Copaxone] 40 mg SQ QMWF 04/29/18 [History] Oxycodone HCl/Acetaminophen [Percocet 5-325 mg Tablet] 1 each PO Q6H 04/29/18 [History] Warfarin [Coumadin] 2 mg PO QMWF 04/29/18 [History] Lactobacillus [Culturelle] 1 each PO BID #4 cap.sprink 12/17/18 [Rx] Sulfamethoxazole/Trimeth DS [Bactrim DS] 1 each PO BID #4 tablet 12/17/18 [Rx] Allergy/AdvReac Type Severity Reaction Status Date / Time atorvastatin [From Lipitor] Allergy Muscle Pain Verified 12/16/18 01:38 levofloxacin [From Levaquin] Allergy Hives Verified 04/28/18 23:59 methocarbamol [From Robaxin] Allergy Hives Verified 04/28/18 23:59 All Systems PM: A 10-system review of systems was performed and is negative for pertinent findings except as documented above in the HPI. Review of systems: Review of systems from his December 2018 [facility] hospitalization were reviewed and revised as below. Gen.: His weight is minimally changed from 76.2 kg on 01/25/2017 to 78.273 kg today. Cardiovascular: He has history of DVT/pulmonary embolism several years ago and has remained on Coumadin since then. He denies hypertension [place] heart failure or angina. He is nonambulatory. Respiratory: He smoked from age [age] up to 2 packs per day. He denies chronic lung disease and does not wear home oxygen. GI: He denies disorders of his liver gallbladder or exocrine pancreas : He had a suprapubic catheter placed approximately 2011. He had indwelling Redd catheter prior to that for neurogenic bladder secondary to multiple sclerosis. He follows with an [facility] urologist. He denies other kidney or bladder disorders. Neurologic: He was diagnosed with MS 2004. He reports he has an aggressive form of the disease and has been bedridden since 2005. He follows with an [facility] neurologist. He denies large distribution strokes or seizures. He states he has peripheral neuropathy. Infectious disease: He was diagnosed with HIV 2004 and follows with an [facility] ID specialist Endocrine: He has hyperlipidemia but denies diabetes or thyroid disease Hematologic/oncologic: He has had anemia in the past. He denies internal malignancies Psychiatric: He has depression but denies anxiety or other mental health issues Musk skeletal: He denies arthritis gout or other bone joint or muscle disorders. - Constitutional Vitals: Temp Pulse Resp BP Pulse Ox 98.4 F 80 26 71/46 92 01/24/19 06:31 01/24/19 06:31 01/24/19 06:31 01/24/19 06:31 01/24/19 06:31 Exam: Gen.: He is a well-developed well-nourished male lying in bed who appears in no acute distress HEENT: Head is atraumatic and normocephalic. Eyes: EOMI. There is no scleral icterus. Mouth: Mucosa is moist. Neck: Supple and nontender. There is no thyromegaly or adenopathy noted. Heart: Regular without murmurs gallops or ectopics Lungs: No wheezes or crackles are heard. Abdomen: Soft and nontender. No masses or guarding are noted. Extremities: He has heel protector boots in place. He has atrophy of his calf muscles and dropfoot bilaterally. Dorsalis pedis and posterior tibial pulses are trace to 1+ palpable bilaterally. Neurologic: Mental status: He is talkative and a good historian. Cranial nerves: Smile is symmetric. Forehead wrinkles bilaterally. Tongue protrudes midline. EOMI. Motor: There is no pronator drift. Cerebellar: Finger to nose is intact bilaterally. Skin: Warm and dry Internal Med - H&P Results - Labs CBC & Chem 7: 01/24/19 05:36 01/24/19 05:36 Labs: Short CBC 01/23/19 01/24/19 Range/Units 19:34 05:36 WBC 13.0 H 9.1 (4.3-11.1) K/mcL Hgb 13.8 11.2 L D (12.9-16.9) g/dL Hct 37.9 31.4 L (37.5-50.1) % Plt Count 203 189 (140-400) K/mcL Neutrophils # 11.1 H 6.6 (1.6-8.9) K/mcL BMP 01/23/19 01/24/19 19:34 05:36 Sodium 133 L 136 Potassium 3.2 L 3.6 Chloride 99 106 Carbon Dioxide 23 22 L BUN 8 10 Creatinine 0.91 1.03 Glucose 134 H 138 H Calcium 8.8 7.9 L Cardiac Enzymes 01/23/19 Range/Units 19:34 Troponin I < 0.03 (< 0.04) ng/mL Liver Function 01/23/19 01/24/19 Range/Units 19:34 05:36 Total Bilirubin 0.3 0.2 L (0.3-1.0) mg/dL Direct Bilirubin 0.0 (0.0-0.2) mg/dL AST 17 16 (13-39) Units/L ALT 16 14 (7-52) Units/L Alkaline Phosphatase 72 55 (34-104) Units/L Albumin 3.5 2.8 L (3.5-5.7) g/dL Urine 01/23/19 Range/Units 20:30 Urine Color Light Yellow (Yellow) Urine Clarity Slightly Cloudy A (Clear) Urine pH 7.0 (5.0-8.0) pH Units Ur Specific [place] 1.015 (1.010-1.025) Urine Protein Negative (Neg-Trace) mg/dL Urine Glucose (UA) Normal (Normal) mg/dL - Impressions ITS Impressions Chest X-Ray 01/23/19 19:16 IMPRESSION: No acute cardiopulmonary disease. D/ / Ed Flores MD / Ed Flores MD Interpreting Provider: Ed Flores MD
[2019-01-24] MEDS ORDERED: 0.9 % Sodium Chloride 500 ML IV ONE ×2 (10:30→12:15)
--- NOTE | 2019-01-24 10:34 | Electrocardiograph Report ---
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
[2019-01-24] MEDS: 0.9 % Sodium Chloride w KCl 20 MEQ/1,000 ML MLS IVC SCH (16:44)
[2019-01-24] MEDS: Levofloxacin 750 MG/150 ML 750 MG/150 ML BAG IVPB SCH (17:23)
[2019-01-24] MEDS: carBAMazepine 200 MG TABLET PO SCH (17:55)
[2019-01-24] MEDS: *HR* Warfarin 3 MG TABLET PO SCH (18:16)
[2019-01-24] MEDS: Doxycycline 100 MG in 0.9 % Sodium Chloride Mini Bag 100 ML IVPB SCH (20:40)
[2019-01-25] MEDS: *HR* OxyCODONE/APAP 5/325 TABLET PO SCH ×5 (01:13→17:51)
[2019-01-25] MEDS: Piperacillin/Tazobactam 3.375 GM in 0.9 % Sodium Chloride Mini Bag 100 ML IVPB SCH ×4 (03:59→16:20)
[2019-01-25] MEDS: carBAMazepine 200 MG TABLET PO SCH (04:00)
[2019-01-25 06:11] LABS: Basophils # 0.1 K/mcL (0.0-0.2); Basophils % 1.1 %; Eosinophils # 0.1 K/mcL (0.0-0.6); Eosinophils % 1.5 %; Hematocrit 34.9 % (37.5-50.1); Hemoglobin 12.5 g/dL (12.9-16.9); Immature Granulocytes % 0.2 % (0-4); Lymphocytes # 1.6 K/mcL (0.6-4.6); Lymphocytes % 29.8 %; Mean Corpuscular HGB Conc 35.8 g/dL (31.6-35.5); Mean Corpuscular Hemoglobin 30.9 pg (28.0-33.3); Mean Corpuscular Volume 86.2 fL (83.0-100.0); Mean Platelet Volume 9.8 fL (9.4-12.4); Monocytes # 0.6 K/mcL (0.0-1.3); Monocytes % 10.4 %; Platelet Count 211 K/mcL (140-400); Red Blood Count 4.05 M/mcL (4.19-5.50); Red Cell Distribution Width 13.6 % (11.5-14.5); White Blood Count 5.3 K/mcL (4.3-11.1)
[2019-01-25 06:37] LABS: BUN/Creatinine Ratio 9 (6-26); Blood Urea Nitrogen 8 mg/dL (6-20); Calcium 8.3 mg/dL (8.6-10.3); Carbon Dioxide 24 mEq/L (23-29); Chloride 103 mEq/L (98-107); Glucose 100 mg/dL (70-105); Osmolality,Calculated 280 (280-300); Potassium 3.3 mEq/L (3.5-5.1); Sodium 136 mEq/L (136-145); eGFR For African Americans > 60 (> 60); eGFR For Non-African Americans > 60 (> 60)
[2019-01-25 06:49] LABS: Thyroid Stimulating Hormone 0.638 mcIU/mL (0.340-5.600)
[2019-01-25] MEDS: Doxycycline 100 MG in 0.9 % Sodium Chloride Mini Bag 100 ML IVPB SCH ×2 (06:50→20:51)
[2019-01-25] MEDS: 0.9 % Sodium Chloride w KCl 20 MEQ/1,000 ML MLS IVC SCH ×2 (06:50→17:42)
[2019-01-25] MEDS: Ascorbic Acid 500 MG TABLET PO SCH (06:51)
[2019-01-25] MEDS ORDERED: Patient Taking Own Medication 1 EACH SQ SCH (09:00)
[2019-01-25] MEDS ORDERED: *HR* Warfarin 4 MG TABLET PO SCH (09:00)
[2019-01-25] MEDS: LAMIVUDINE PO SCH (09:03)
[2019-01-25] MEDS: ABACAVIR SULFATE PO SCH (09:03)
[2019-01-25] MEDS: EFAVIRENZ PO SCH (09:04)
[2019-01-25] MEDS: Levofloxacin 750 MG/150 ML 750 MG/150 ML BAG IVPB SCH (09:24)
[2019-01-25] MEDS: Gabapentin 300 MG CAPSULE PO SCH ×4 (09:41→20:54)
[2019-01-25] MEDS: Baclofen 10 MG TABLET PO SCH ×4 (09:41→20:53)
[2019-01-25] MEDS: Furosemide 40 MG TABLET PO SCH (09:41)
[2019-01-25] MEDS: Lactobacillus 1 EACH CAP.SPRINK PO SCH ×2 (09:41→20:53)
[2019-01-25] MEDS: Cholecalciferol (D-3) 1,000 UNIT TABLET PO SCH (09:45)
[2019-01-25 09:48] LABS: Folate > 22.3 ng/mL (3.0-16.0); Vitamin B12 1118 pg/mL (250-1100)
[2019-01-25 09:49] LABS: Ferritin 92 ng/mL (20-250)
[2019-01-25 09:56] LABS: Estimated Average Glucose 105 mg/dl
[2019-01-25 10:07] LABS: % Iron Saturation 13 % (20-55); Iron 30 mcg/dL (65-175); Transferrin 166 mg/dL (203-362)
--- NOTE | 2019-01-25 11:40 | Internal Med Progress Note ---
Date of Encounter: 01/25/19 Time of Encounter: 11:32 - Assessment and plan (1) Sepsis Current Visit: Yes Status: Acute Assessment and plan: January 25. Urine culture shows gram-positive cocci on preliminary report. Pro- calcitonin level returned elevated at 0.45. Continue Zosyn and doxycycline with lactobacillus. Levaquin will be discontinued. Qualifiers: Sepsis type: sepsis due to unspecified organism Qualified Code(s): A41.9 - Sepsis, unspecified organism (2) Anemia Current Visit: No Status: Acute Assessment and plan: January 25. Anemia testing showed iron 30, transferrin saturation 13%, transferrin 166, ferritin 92, B12 1118, and folate > 22.3. Start ferrous sulfate with ascorbic acid in a.m. Qualifiers: Anemia type: unspecified type Qualified Code(s): D64.9 - Anemia, unspecified (3) Hypokalemia Current Visit: Yes Status: Acute Assessment and plan: January 25. Supplemental potassium will be increased. - Subjective Interval history: January 25. He has no new complaints and feels better. - Constitutional Vitals: Temp Pulse Resp BP Pulse Ox 98.5 F 96 18 107/68 96 01/25/19 11:35 01/25/19 11:35 01/25/19 11:35 01/25/19 11:35 01/25/19 11:35 Exam: He is resting comfortably in bed and appears in no acute distress. His affect is bright and cheerful. I reviewed his medications and lab results. Internal Medicine: Result - Labs CBC & Chem 7: 01/25/19 05:24 01/25/19 05:24 Labs: Short CBC 01/25/19 Range/Units 05:24 WBC 5.3 (4.3-11.1) K/mcL Hgb 12.5 L (12.9-16.9) g/dL Hct 34.9 L (37.5-50.1) % Plt Count 211 (140-400) K/mcL Neutrophils # 3.0 (1.6-8.9) K/mcL BMP 01/25/19 05:24 Sodium 136 Potassium 3.3 L Chloride 103 Carbon Dioxide 24 BUN 8 Creatinine 0.94 Glucose 100 Calcium 8.3 L - ABG Interpretation ABG results: PT/INR, D-dimer PT 23.9 Seconds (9.4-12.1) H 01/23/19 19:34 Consult Discharge Plan - Plan Referrals: Anika Crane MD [Primary Care Provider] - 1 week
[2019-01-25] MEDS: *HR* Warfarin 3 MG TABLET PO SCH (17:51)
[2019-01-25] MEDS: tiZANidine 4 MG TABLET PO SCH (20:54)
[2019-01-25] MEDS: ALPRAZolam 1 MG TABLET PO SCH (20:55)
[2019-01-26] MEDS: Piperacillin/Tazobactam 3.375 GM in 0.9 % Sodium Chloride Mini Bag 100 ML IVPB SCH ×2 (00:30→10:39)
[2019-01-26] MEDS: *HR* OxyCODONE/APAP 5/325 TABLET PO SCH ×3 (01:00→12:09)
[2019-01-26] MEDS: Ascorbic Acid 500 MG TABLET PO SCH (06:29)
[2019-01-26] MEDS: Doxycycline 100 MG in 0.9 % Sodium Chloride Mini Bag 100 ML IVPB SCH (06:30)
[2019-01-26 10:20] VITALS: BP 111/64
[2019-01-26] MEDS: Lactobacillus 1 EACH CAP.SPRINK PO SCH (10:37)
[2019-01-26] MEDS: Gabapentin 300 MG CAPSULE PO SCH (10:37)
[2019-01-26] MEDS: Baclofen 10 MG TABLET PO SCH (10:37)
[2019-01-26] MEDS: LAMIVUDINE PO SCH (10:38)
[2019-01-26] MEDS: ABACAVIR SULFATE PO SCH (10:38)
[2019-01-26] MEDS: Furosemide 40 MG TABLET PO SCH (10:38)
[2019-01-26] MEDS: EFAVIRENZ PO SCH (10:39)
[2019-01-26] MEDS: Cholecalciferol (D-3) 1,000 UNIT TABLET PO SCH (10:39)
--- NOTE | 2019-01-26 11:12 | Discharge Summary ---
Orders not resulted at time of discharge: Pending orders 01/23/19 19:42 Culture,Blood [BC] Stat Date of Encounter: 01/26/19 Time of Encounter: 10:57 - Discharge Diagnosis (1) Sepsis Priority: Primary Status: Resolved Qualifiers: Sepsis type: sepsis due to unspecified organism Qualified Code(s): A41.9 - Sepsis, unspecified organism (2) Anemia Priority: Secondary Status: Acute Qualifiers: Anemia type: iron deficiency Iron deficiency anemia type: unspecified iron deficiency Qualified Code(s): D50.9 - Iron deficiency anemia, unspecified (3) Hypokalemia Priority: Secondary Status: Acute Hospital course: Mr. Mccullough is a 53 year old male who came to emergency room stating he developed fevers and chills approximately 24 hours earlier. He denies pain vomiting diarrhea cough or dyspnea. He reports his mother and his mother's sister had similar febrile illnesses a few days earlier. He was evaluated in emergency room and was felt to have possible UTI. He was admitted to [facility] floor for ongoing care needs. Initial orders were written by the emergency room physician. I saw him on January 24 and performed the history and physical. He was started empirically on IV Rocephin Levaquin and Zosyn. Pro-calcitonin returned elevated at 0.45. Urine culture returned showing Enterococcus faecalis. WBC normalized with resolution of left shift by January 24. On January 26 he was stable for discharge home. He will continue with antibiotic and probiotic for 3 additional days at discharge. Hemoglobin decreased to 11.2 on January 24. Anemia testing showed iron 30, transferrin saturation 13%, transferrin 166, ferritin 92, B12 1118, and folate > 22.3. He will be started on ferrous sulfate with ascorbic acid. Supplemental potassium dose was increased due to hypokalemia. He will continue the higher dose of 20 mEq twice a day at discharge. He will follow with his PCP within 1 week. - Time Spent with Patient Total time spent providing and/or coordinating discharge services: - Discharge Medications Prescriptions: New Amoxicillin/Clavulanate [Augmentin] 875 mg PO BIDWM #6 tablet Warfarin [Coumadin] 3 mg PO DAILY@1800 tablet Ferrous Sulfate 325 mg PO 0630 #30 tablet Potassium Chloride 20 meq PO BID #120 tab.er.prt Continued Zolpidem [Ambien] 10 mg PO HS Efavirenz [Sustiva] 50 mg PO DAILY Abacavir Sulfate/Lamivudine [Epzicom Tablet] 1 each PO DAILY Tizanidine HCl [Zanaflex] 4 mg PO HS Baclofen 30 mg PO QID Alprazolam [Xanax] 2 mg PO HS Cholecalciferol (Vitamin D3) [Vitamin D3] 5,000 unit PO DAILY Docusate [Colace] 100 mg PO TID Paroxetine [Paxil] 20 mg PO DAILY Gabapentin [Neurontin] 600 mg PO QID Ascorbic Acid [Vitamin C] 500 mg PO DAILY@0630 #30 tab Oxycodone HCl/Acetaminophen [Percocet 5-325 mg Tablet] 1 each PO Q6H Glatiramer Acetate [Copaxone] 40 mg SQ QMWF Furosemide [Lasix] 40 mg PO DAILY Lactobacillus [Culturelle] 1 each PO BID #4 cap.sprink Discontinued Potassium Chloride [K-Tab ER] 10 meq PO BID carBAMazepine [Tegretol] 200 mg PO BID Warfarin [Coumadin] 2 mg PO QMWF Sulfamethoxazole/Trimeth DS [Bactrim DS] 1 each PO BID #4 tablet Home Medications: Abacavir Sulfate/Lamivudine [Epzicom Tablet] 1 each PO DAILY 10/04/15 [History] Alprazolam [Xanax] 2 mg PO HS 10/04/15 [History] Baclofen 30 mg PO QID 10/04/15 [History] Cholecalciferol (Vitamin D3) [Vitamin D3] 5,000 unit PO DAILY 10/04/15 [History] Docusate [Colace] 100 mg PO TID 10/04/15 [History] Efavirenz [Sustiva] 50 mg PO DAILY 10/04/15 [History] Gabapentin [Neurontin] 600 mg PO QID 10/04/15 [History] Paroxetine [Paxil] 20 mg PO DAILY 10/04/15 [History] Tizanidine HCl [Zanaflex] 4 mg PO HS 10/04/15 [History] Zolpidem [Ambien] 10 mg PO HS 10/04/15 [History] Ascorbic Acid [Vitamin C] 500 mg PO DAILY@0630 #30 tab 04/05/17 [Rx] Furosemide [Lasix] 40 mg PO DAILY 04/29/18 [History] Glatiramer Acetate [Copaxone] 40 mg SQ QMWF 04/29/18 [History] Oxycodone HCl/Acetaminophen [Percocet 5-325 mg Tablet] 1 each PO Q6H 04/29/18 [History] Lactobacillus [Culturelle] 1 each PO BID #4 cap.sprink 12/17/18 [Rx] Amoxicillin/Clavulanate [Augmentin] 875 mg PO BIDWM #6 tablet 01/26/19 [Rx] Ferrous Sulfate 325 mg PO 0630 #30 tablet 01/26/19 [Rx] Potassium Chloride 20 meq PO BID #120 tab.er.prt 01/26/19 [Rx] Warfarin [Coumadin] 3 mg PO DAILY@1800 tablet 01/26/19 [Rx] Allergies/Adverse Reactions: Allergy/AdvReac Type Severity Reaction Status Date / Time atorvastatin [From Lipitor] Allergy Muscle Pain Verified 12/16/18 01:38 levofloxacin [From Levaquin] Allergy Hives Verified 04/28/18 23:59 methocarbamol [From Robaxin] Allergy Hives Verified 04/28/18 23:59 Date of admission: 01/24/19 10:16 Primary care physician: Anika Crane MD - Constitutional Vitals: Temp Pulse Resp BP Pulse Ox 98.0 F 91 17 111/64 94 01/26/19 10:00 01/26/19 10:00 01/26/19 10:00 01/26/19 10:00 01/26/19 10:00 - Patient Status Disposition: Home, Self-Care Condition: Fair - Discharge Instructions Follow Up With: Anika Crane MD [Primary Care Provider] - 1 week - Diet and Activity Activity: resume usual activities as tolerated Diet: advance to your usual diet
--- NOTE | 2019-01-26 14:06 | Physician Discharge Referral ---
Home Health/Hosp Referral Info Transfer to: Home Health Attending Provider: Carlos Provider in Charge Post Discharge: PCP - Diagnosis (1) Sepsis Priority: Primary Status: Resolved (2) Anemia Priority: Secondary Status: Acute (3) Hypokalemia Priority: Secondary Status: Acute - Respiratory Orders Smoking Cessation: Smoking cessation has been advised. For more information, call the [place] Tobacco Quit Line at 4-910-DOWA-NOW. - Diet/Nutrition Diet/Nutrition Orders: Cardiac - Activity Activity Orders: Up ad wilfredo - Services Needed Following services are medically necessary services: Nursing, Home Health Aide, Physical Therapy, Occupational Therapy - Transfer Medications Prescriptions: Amoxicillin/Clavulanate [Augmentin] 875 mg PO BIDWM #6 tablet Ferrous Sulfate 325 mg PO 0630 #30 tablet Potassium Chloride 20 meq PO BID #120 tab.er.prt Home Medications: Abacavir Sulfate/Lamivudine [Epzicom Tablet] 1 each PO DAILY 10/04/15 [History] Alprazolam [Xanax] 2 mg PO HS 10/04/15 [History] Baclofen 30 mg PO QID 10/04/15 [History] Cholecalciferol (Vitamin D3) [Vitamin D3] 5,000 unit PO DAILY 10/04/15 [History] Docusate [Colace] 100 mg PO TID 10/04/15 [History] Efavirenz [Sustiva] 50 mg PO DAILY 10/04/15 [History] Gabapentin [Neurontin] 600 mg PO QID 10/04/15 [History] Paroxetine [Paxil] 20 mg PO DAILY 10/04/15 [History] Tizanidine HCl [Zanaflex] 4 mg PO HS 10/04/15 [History] Zolpidem [Ambien] 10 mg PO HS 10/04/15 [History] Ascorbic Acid [Vitamin C] 500 mg PO DAILY@0630 #30 tab 04/05/17 [Rx] Furosemide [Lasix] 40 mg PO DAILY 04/29/18 [History] Glatiramer Acetate [Copaxone] 40 mg SQ QMWF 04/29/18 [History] Oxycodone HCl/Acetaminophen [Percocet 5-325 mg Tablet] 1 each PO Q6H 04/29/18 [History] Lactobacillus [Culturelle] 1 each PO BID #4 cap.sprink 12/17/18 [Rx] Amoxicillin/Clavulanate [Augmentin] 875 mg PO BIDWM #6 tablet 01/26/19 [Rx] Ferrous Sulfate 325 mg PO 0630 #30 tablet 01/26/19 [Rx] Potassium Chloride 20 meq PO BID #120 tab.er.prt 01/26/19 [Rx] Warfarin [Coumadin] 3 mg PO DAILY@1800 tablet 01/26/19 [Rx] Allergies/Adverse Reactions: Allergy/AdvReac Type Severity Reaction Status Date / Time atorvastatin [From Lipitor] Allergy Muscle Pain Verified 12/16/18 01:38 levofloxacin [From Levaquin] Allergy Hives Verified 04/28/18 23:59 methocarbamol [From Robaxin] Allergy Hives Verified 04/28/18 23:59 Certification: Further, I certify that my clinical findings support that this patient is homebound (i.e. 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
== END 2019-01-26 14:46 | disposition home or self-care (01) | DRG 975 ==
LOC: EMEROOPIK 19:11 → INPPIK 19:11
PROVIDERS: ADMIT Internal Medicine; ATTEND Internal Medicine

== ENCOUNTER 2020-04-26 02:03 | Inpatient (IN) ==
[2020-04-26 02:49] LABS: Basophils # 0.1 K/mcL (0.0-0.2); Basophils % 0.4 %; Eosinophils # 0.1 K/mcL (0.0-0.6); Eosinophils % 0.4 %; Hematocrit 41.1 % (37.5-50.1); Hemoglobin 14.6 g/dL (12.9-16.9); Immature Granulocytes % 0.3 % (0-4); Lymphocytes # 1.2 K/mcL (0.6-4.6); Lymphocytes % 6.7 %; Mean Corpuscular HGB Conc 35.5 g/dL (31.6-35.5); Mean Corpuscular Hemoglobin 31.5 pg (28.0-33.3); Mean Corpuscular Volume 88.8 fL (83.0-100.0); Mean Platelet Volume 9.2 fL (9.4-12.4); Monocytes # 0.7 K/mcL (0.0-1.3); Monocytes % 4.1 %; Neutrophils # 15.6 K/mcL (1.6-8.9); Platelet Count 258 K/mcL (140-400); Red Blood Count 4.63 M/mcL (4.19-5.50); Segmented Neutrophils % 88.1 %; White Blood Count 17.7 K/mcL (4.3-11.1)
[2020-04-26 03:11] LABS: Bilirubin,Urine Negative (Negative); Blood,Urine Negative (Negative); Clarity,Urine Clear (Clear); Color,Urine Yellow (Yellow); Glucose,Urine (UA) Normal (Normal); Ketones,Urine Negative (Negative); Leukocyte Esterase,Urine Trace (Negative); Nitrite,Urine Negative (Negative); Protein,Urine Negative (Neg-Trace); Urobilinogen,Urine Normal (Normal)
[2020-04-26] MEDS ORDERED: levoFLOXacin 750 MG/150 ML 750 MG/150 ML BAG IVPB ONE (03:18)
[2020-04-26] MEDS ORDERED: Cefepime HCl 2,000 MG in Water for inj. (sterile) 20 ML IVP ONE (03:18)
[2020-04-26 03:20] LABS: Blood Urea Nitrogen 7 mg/dL (6-20); Chloride 98 mEq/L (98-107); Glucose 161 mg/dL (70-105); Osmolality,Calculated 277 (280-300); Potassium 3.3 mEq/L (3.5-5.1); Sodium 133 mEq/L (136-145)
[2020-04-26] MEDS ORDERED: cefTRIAXone 1,000 MG in Water for inj. (sterile) 10 ML IVP ONE (03:26)
[2020-04-26 03:27] LABS: Bacteria,Urine Many per hpf (None-Few); RBC,Urine 0-3 per hpf (0-3); Squamous Epithelial Cell,Urine None Seen per hpf (None-Few); WBC,Urine 0-3 per hpf (0-3)
[2020-04-26] MEDS: 0.9 % Sodium Chloride 1,000 ML IVC SCH ×3 (03:50→04:59)
[2020-04-26 04:45] LABS: BUN/Creatinine Ratio 9 (6-26); Carbon Dioxide 22 mEq/L (23-29); eGFR For African Americans > 60 (> 60); eGFR For Non-African Americans > 60 (> 60)
[2020-04-26 06:02] LABS: Adenovirus Not Detected (Not Detect); Bordetella Pertussis Not Detected (Not Detect); Chlamydophila pneumoniae Not Detected (Not Detect); Coronavirus 229E Not Detected (Not Detect); Coronavirus HKU1 Not Detected (Not Detect); Coronavirus NL63 Not Detected (Not Detect); Coronavirus OC43 Not Detected (Not Detect); Human Metapneumovirus Not Detected (Not Detect); Human Rhinovirus/Enterovirus Not Detected (Not Detect); Influenza A Subtype 2009 H1 Not Detected (Not Detect); Influenza B Not Detected (Not Detect); Mycoplasma pneumoniae Not Detected (Not Detect); Parainfluenza Virus 1 Not Detected (Not Detect); Parainfluenza Virus 2 Not Detected (Not Detect); Parainfluenza Virus 3 Not Detected (Not Detect); Parainfluenza Virus 4 Not Detected (Not Detect); Respiratory Syncytial Virus Not Detected (Not Detect); SARS-CoV-2 Not Detected (Not Detect)
[2020-04-26] MEDS ORDERED: *HR* Warfarin 3 MG TABLET PO SCH (09:00)
[2020-04-26] MEDS ORDERED: *HR* Warfarin 2 MG TABLET PO SCH (09:00)
[2020-04-26] MEDS ORDERED: Gentamicin 400 MG in 0.9 % Sodium Chloride 100 ML IVPB SCH (09:00)
[2020-04-26] MEDS: ABACAVIR SULFATE PO SCH (09:35)
[2020-04-26] MEDS: LAMIVUDINE PO SCH (09:35)
[2020-04-26] MEDS: Glatiramer Acetate [Copaxone] 40 MG SQ SCH (09:35)
[2020-04-26] MEDS: PARoxetine 20 MG TABLET PO SCH (11:01)
[2020-04-26] MEDS: Gabapentin 400 MG CAPSULE PO SCH ×3 (11:01→22:53)
[2020-04-26] MEDS: Baclofen 10 MG TABLET PO PRN ×3 (11:02→23:01)
[2020-04-26] MEDS: ALPRAZolam 1 MG TABLET PO PRN ×2 (11:02→17:10)
[2020-04-26] MEDS: Furosemide 20 MG TABLET PO SCH (11:02)
[2020-04-26] MEDS: *HR* OxyCODONE/APAP 5/325 TABLET PO PRN ×2 (11:02→23:00)
[2020-04-26] MEDS: carBAMazepine 200 MG TABLET PO SCH ×2 (11:02→22:54)
[2020-04-26] MEDS: Lactobacillus 1 EACH CAP.SPRINK PO SCH (11:02)
[2020-04-26] MEDS ORDERED: Piperacillin/Tazobactam 3.375 GM in 0.9 % Sodium Chloride Mini Bag 100 ML IVPB SCH (16:00)
[2020-04-26] MEDS: Cefepime HCl 2,000 MG in 0.9 % Sodium Chloride Mini Bag 100 ML IVPB SCH (17:10)
[2020-04-26] MEDS: *HR* Rivaroxaban 10 MG TABLET PO SCH (18:12)
[2020-04-27] MEDS: ALPRAZolam 1 MG TABLET PO PRN (03:58)
[2020-04-27] MEDS: Cefepime HCl 2,000 MG in 0.9 % Sodium Chloride Mini Bag 100 ML IVPB SCH ×2 (06:16→16:55)
[2020-04-27] MEDS: Baclofen 10 MG TABLET PO PRN ×2 (06:23→23:38)
[2020-04-27] MEDS: *HR* OxyCODONE/APAP 5/325 TABLET PO PRN ×2 (06:23→23:39)
[2020-04-27] MEDS: LAMIVUDINE PO SCH (07:22)
[2020-04-27] MEDS: ABACAVIR SULFATE PO SCH (07:22)
[2020-04-27] MEDS ORDERED: 0.9 % Sodium Chloride 1,000 ML ONE ×2 (07:28→08:52)
[2020-04-27 07:32] LABS: Hematocrit 33.2 % (37.5-50.1); Hemoglobin 11.7 g/dL (12.9-16.9); Mean Corpuscular HGB Conc 35.2 g/dL (31.6-35.5); Mean Corpuscular Hemoglobin 31.4 pg (28.0-33.3); Mean Platelet Volume 9.5 fL (9.4-12.4); Platelet Count 267 K/mcL (140-400); Red Blood Count 3.73 M/mcL (4.19-5.50); Red Cell Distribution Width 13.2 % (11.5-14.5); White Blood Count 9.6 K/mcL (4.3-11.1)
[2020-04-27 07:51] LABS: BUN/Creatinine Ratio 10 (6-26); Blood Urea Nitrogen 9 mg/dL (6-20); Calcium 8.2 mg/dL (8.6-10.3); Carbon Dioxide 24 mEq/L (23-29); Chloride 104 mEq/L (98-107); Glucose 121 mg/dL (70-105); Osmolality,Calculated 282 (280-300); Potassium 3.5 mEq/L (3.5-5.1); Sodium 136 mEq/L (136-145); eGFR For African Americans > 60 (> 60); eGFR For Non-African Americans > 60 (> 60)
[2020-04-27] MEDS ORDERED: 0.9 % Sodium Chloride 1,000 ML IVC SCH ×2 (09:00→13:45)
[2020-04-27] MEDS: carBAMazepine 200 MG TABLET PO SCH ×2 (09:41→23:38)
[2020-04-27] MEDS: PARoxetine 20 MG TABLET PO SCH (09:41)
[2020-04-27] MEDS: Lactobacillus 1 EACH CAP.SPRINK PO SCH (09:41)
[2020-04-27] MEDS: Gabapentin 400 MG CAPSULE PO SCH ×3 (09:41→23:38)
[2020-04-27] MEDS: Furosemide 20 MG TABLET PO SCH (09:44)
[2020-04-27] MEDS ORDERED: 0.9 % Sodium Chloride 500 ML IVC ONE (13:43)
[2020-04-27] MEDS: *HR* Rivaroxaban 10 MG TABLET PO SCH (16:54)
[2020-04-27] MEDS: 0.9 % Sodium Chloride 1,000 ML IVC SCH (23:39)
[2020-04-28] MEDS ORDERED: 0.9 % Sodium Chloride 500 ML IV ONE (05:19)
[2020-04-28] MEDS: Cefepime HCl 2,000 MG in 0.9 % Sodium Chloride Mini Bag 100 ML IVPB SCH ×2 (06:03→17:29)
[2020-04-28] MEDS: PARoxetine 20 MG TABLET PO SCH (08:10)
[2020-04-28] MEDS: Baclofen 10 MG TABLET PO PRN ×2 (08:10→15:00)
[2020-04-28] MEDS: carBAMazepine 200 MG TABLET PO SCH ×2 (08:10→20:18)
[2020-04-28] MEDS: Gabapentin 400 MG CAPSULE PO SCH ×3 (08:10→20:17)
[2020-04-28] MEDS: Lactobacillus 1 EACH CAP.SPRINK PO SCH (08:11)
[2020-04-28] MEDS: Furosemide 20 MG TABLET PO SCH (08:11)
[2020-04-28] MEDS: LAMIVUDINE PO SCH (09:00)
[2020-04-28] MEDS: ABACAVIR SULFATE PO SCH (09:00)
[2020-04-28] MEDS: *HR* OxyCODONE/APAP 5/325 TABLET PO PRN (12:29)
[2020-04-28] MEDS: 0.9 % Sodium Chloride 1,000 ML IVC SCH ×3 (14:11→23:11)
[2020-04-28] MEDS: *HR* Rivaroxaban 10 MG TABLET PO SCH (17:29)
[2020-04-28] MEDS ORDERED: ABACAVIR SULFATE PO SCH (18:00)
[2020-04-28] MEDS ORDERED: LAMIVUDINE PO SCH (18:00)
[2020-04-28] MEDS ORDERED: tiZANidine 4 MG TABLET PO SCH (21:00)
[2020-04-28] MEDS ORDERED: 0.9 % Sodium Chloride 1,000 ML IVC ONE (23:25)
[2020-04-28] MEDS ORDERED: 0.9 % Sodium Chloride 500 ML IVC ONE (23:30)
[2020-04-29] MEDS: Baclofen 10 MG TABLET PO PRN ×3 (03:27→15:20)
[2020-04-29] MEDS: 0.9 % Sodium Chloride 1,000 ML IVC SCH ×3 (04:41→15:28)
[2020-04-29 05:45] LABS: Basophils # 0.1 K/mcL (0.0-0.2); Basophils % 1.1 %; Eosinophils # 0.3 K/mcL (0.0-0.6); Eosinophils % 4.9 %; Hematocrit 33.1 % (37.5-50.1); Hemoglobin 11.6 g/dL (12.9-16.9); Immature Granulocytes % 0.2 % (0-4); Lymphocytes # 2.7 K/mcL (0.6-4.6); Lymphocytes % 41.7 %; Mean Corpuscular Hemoglobin 30.9 pg (28.0-33.3); Mean Corpuscular Volume 88.3 fL (83.0-100.0); Mean Platelet Volume 9.3 fL (9.4-12.4); Monocytes # 0.5 K/mcL (0.0-1.3); Monocytes % 8.2 %; Neutrophils # 2.9 K/mcL (1.6-8.9); Platelet Count 264 K/mcL (140-400); Red Blood Count 3.75 M/mcL (4.19-5.50); Red Cell Distribution Width 12.6 % (11.5-14.5); Segmented Neutrophils % 43.9 %; White Blood Count 6.5 K/mcL (4.3-11.1)
[2020-04-29] MEDS: Cefepime HCl 2,000 MG in 0.9 % Sodium Chloride Mini Bag 100 ML IVPB SCH (05:59)
[2020-04-29 06:03] LABS: BUN/Creatinine Ratio 8 (6-26); Blood Urea Nitrogen 5 mg/dL (6-20); Calcium 8.4 mg/dL (8.6-10.3); Carbon Dioxide 24 mEq/L (23-29); Chloride 99 mEq/L (98-107); Glucose 137 mg/dL (70-105); Osmolality,Calculated 269 (280-300); Potassium 3.4 mEq/L (3.5-5.1); Sodium 130 mEq/L (136-145); eGFR For African Americans > 60 (> 60); eGFR For Non-African Americans > 60 (> 60)
[2020-04-29] MEDS: Lactobacillus 1 EACH CAP.SPRINK PO SCH (09:17)
[2020-04-29] MEDS: *HR* OxyCODONE/APAP 5/325 TABLET PO PRN ×2 (09:17→15:20)
[2020-04-29] MEDS: Gabapentin 400 MG CAPSULE PO SCH ×2 (09:18→15:20)
[2020-04-29] MEDS: Furosemide 20 MG TABLET PO SCH (09:18)
[2020-04-29] MEDS: carBAMazepine 200 MG TABLET PO SCH (09:18)
[2020-04-29] MEDS: PARoxetine 20 MG TABLET PO SCH (09:18)
[2020-04-29] MEDS: Glatiramer Acetate [Copaxone] 40 MG SQ SCH (09:19)
[2020-04-29 15:37] VITALS: BP 113/70
[2020-04-29] MEDS ORDERED: Loratadine 10 MG TABLET PO SCH (21:00)
== END 2020-04-29 16:11 | disposition other institution (70) | DRG 698 ==
LOC: EMEROOPIK 02:03 → INPPIK 02:03
PROVIDERS: ADMIT Family Medicine; ATTEND Family Medicine

== ENCOUNTER 2020-04-29 12:43 | Inpatient (IN) ==
[2020-04-29] MEDS: 0.9 % Sodium Chloride 1,000 ML IVC SCH (18:05)
[2020-04-29] MEDS: *HR* Rivaroxaban 10 MG TABLET PO SCH (21:26)
[2020-04-29] MEDS: Gabapentin 400 MG CAPSULE PO SCH (21:26)
[2020-04-29] MEDS: carBAMazepine 200 MG TABLET PO SCH (21:27)
[2020-04-30] MEDS: *HR* OxyCODONE/APAP 5/325 TABLET PO PRN ×2 (00:07→13:13)
[2020-04-30] MEDS: Piperacillin/Tazobactam 3.375 GM in 0.9 % Sodium Chloride Mini Bag 100 ML IVPB SCH ×3 (00:07→16:18)
[2020-04-30] MEDS: ALPRAZolam 1 MG TABLET PO PRN ×2 (03:53→13:13)
[2020-04-30] MEDS: 0.9 % Sodium Chloride 1,000 ML IVC SCH ×2 (04:24→13:13)
[2020-04-30] MEDS: Furosemide 20 MG TABLET PO SCH (08:38)
[2020-04-30] MEDS: PARoxetine 20 MG TABLET PO SCH (08:39)
[2020-04-30] MEDS: Gabapentin 400 MG CAPSULE PO SCH ×2 (08:39→16:18)
[2020-04-30] MEDS: Baclofen 10 MG TABLET PO PRN ×2 (08:39→16:18)
[2020-04-30] MEDS: Lactobacillus 1 EACH CAP.SPRINK PO SCH (08:39)
[2020-04-30] MEDS: Loratadine 10 MG TABLET PO SCH (08:39)
[2020-04-30] MEDS: carBAMazepine 200 MG TABLET PO SCH ×2 (08:39→21:35)
[2020-04-30] MEDS: LAMIVUDINE PO SCH (18:07)
[2020-04-30] MEDS: EFAVIRENZ 600 MG PO SCH (18:07)
[2020-04-30] MEDS: ABACAVIR PO SCH (18:07)
[2020-04-30] MEDS: *HR* Rivaroxaban 10 MG TABLET PO SCH (18:13)
[2020-04-30] MEDS ORDERED: 0.9 % Sodium Chloride 1,000 ML ONE (21:32)
[2020-05-01] MEDS: Baclofen 10 MG TABLET PO PRN ×2 (00:23→09:40)
[2020-05-01] MEDS: ALPRAZolam 1 MG TABLET PO PRN ×2 (00:24→23:47)
[2020-05-01] MEDS: Piperacillin/Tazobactam 3.375 GM in 0.9 % Sodium Chloride Mini Bag 100 ML IVPB SCH ×4 (00:24→23:48)
[2020-05-01] MEDS: *HR* OxyCODONE/APAP 5/325 TABLET PO PRN ×3 (00:24→23:47)
[2020-05-01] MEDS: Gabapentin 400 MG CAPSULE PO SCH ×4 (00:24→23:47)
[2020-05-01] MEDS: 0.9 % Sodium Chloride 1,000 ML IVC SCH (01:13)
[2020-05-01] MEDS: carBAMazepine 200 MG TABLET PO SCH ×2 (08:45→23:47)
[2020-05-01] MEDS: PARoxetine 20 MG TABLET PO SCH (08:45)
[2020-05-01] MEDS: Lactobacillus 1 EACH CAP.SPRINK PO SCH (08:45)
[2020-05-01] MEDS: Furosemide 20 MG TABLET PO SCH (08:45)
[2020-05-01] MEDS: Loratadine 10 MG TABLET PO SCH (08:45)
[2020-05-01] MEDS ORDERED: GLATIRAMER 40 MG SQ SCH (09:00)
[2020-05-01] MEDS: Baclofen 10 MG TABLET PO SCH ×2 (16:29→23:48)
[2020-05-01] MEDS: *HR* Rivaroxaban 10 MG TABLET PO SCH (18:01)
[2020-05-01] MEDS: GLATIRAMER 40 MG SQ SCH (18:02)
[2020-05-01] MEDS: EFAVIRENZ 600 MG PO SCH (18:02)
[2020-05-01] MEDS: LAMIVUDINE PO SCH (18:03)
[2020-05-01] MEDS: ABACAVIR PO SCH (18:03)
[2020-05-02 06:10] LABS: Basophils # 0.1 K/mcL (0.0-0.2); Basophils % 1.5 %; Eosinophils # 0.3 K/mcL (0.0-0.6); Eosinophils % 3.4 %; Hematocrit 40.4 % (37.5-50.1); Hemoglobin 14.3 g/dL (12.9-16.9); Immature Granulocytes % 0.2 % (0-4); Lymphocytes # 3.6 K/mcL (0.6-4.6); Lymphocytes % 45.3 %; Mean Corpuscular HGB Conc 35.4 g/dL (31.6-35.5); Mean Corpuscular Volume 87.6 fL (83.0-100.0); Mean Platelet Volume 9.2 fL (9.4-12.4); Monocytes # 0.5 K/mcL (0.0-1.3); Monocytes % 6.7 %; Neutrophils # 3.4 K/mcL (1.6-8.9); Platelet Count 353 K/mcL (140-400); Red Blood Count 4.61 M/mcL (4.19-5.50); Red Cell Distribution Width 12.9 % (11.5-14.5); Segmented Neutrophils % 42.9 %
[2020-05-02 06:34] LABS: BUN/Creatinine Ratio 7 (6-26); Blood Urea Nitrogen 6 mg/dL (6-20); Carbon Dioxide 27 mEq/L (23-29); Chloride 99 mEq/L (98-107); Glucose 98 mg/dL (70-105); Osmolality,Calculated 278 (280-300); Potassium 3.5 mEq/L (3.5-5.1); Sodium 135 mEq/L (136-145); eGFR For African Americans > 60 (> 60); eGFR For Non-African Americans > 60 (> 60)
[2020-05-02] MEDS: Piperacillin/Tazobactam 3.375 GM in 0.9 % Sodium Chloride Mini Bag 100 ML IVPB SCH ×2 (08:56→16:55)
[2020-05-02] MEDS: Gabapentin 400 MG CAPSULE PO SCH ×2 (08:59→14:03)
[2020-05-02] MEDS: Lactobacillus 1 EACH CAP.SPRINK PO SCH (09:00)
[2020-05-02] MEDS: Loratadine 10 MG TABLET PO SCH (09:00)
[2020-05-02] MEDS: Baclofen 10 MG TABLET PO SCH ×3 (09:00→16:55)
[2020-05-02] MEDS: *HR* OxyCODONE/APAP 5/325 TABLET PO PRN (09:00)
[2020-05-02] MEDS: carBAMazepine 200 MG TABLET PO SCH ×2 (09:00→20:57)
[2020-05-02] MEDS: PARoxetine 20 MG TABLET PO SCH (09:00)
[2020-05-02] MEDS: ALPRAZolam 1 MG TABLET PO PRN (09:03)
[2020-05-02] MEDS: Furosemide 20 MG TABLET PO SCH (09:03)
[2020-05-02] MEDS: ABACAVIR PO SCH (16:55)
[2020-05-02] MEDS: LAMIVUDINE PO SCH (16:55)
[2020-05-02] MEDS: EFAVIRENZ 600 MG PO SCH (16:55)
[2020-05-02] MEDS: *HR* Rivaroxaban 10 MG TABLET PO SCH (16:59)
[2020-05-02] MEDS ORDERED: tiZANidine 4 MG TABLET PO PRN ×2 (17:10→17:16)
[2020-05-03] MEDS: Piperacillin/Tazobactam 3.375 GM in 0.9 % Sodium Chloride Mini Bag 100 ML IVPB SCH ×3 (00:02→14:37)
[2020-05-03] MEDS: Baclofen 10 MG TABLET PO SCH ×4 (00:04→17:46)
[2020-05-03] MEDS: Gabapentin 400 MG CAPSULE PO SCH ×3 (00:04→14:36)
[2020-05-03] MEDS: ALPRAZolam 1 MG TABLET PO PRN ×2 (00:05→10:33)
[2020-05-03] MEDS: *HR* OxyCODONE/APAP 5/325 TABLET PO PRN ×2 (05:41→12:37)
[2020-05-03 06:38] VITALS: BP 117/65
[2020-05-03] MEDS: Furosemide 20 MG TABLET PO SCH (08:57)
[2020-05-03] MEDS: PARoxetine 20 MG TABLET PO SCH (08:57)
[2020-05-03] MEDS: carBAMazepine 200 MG TABLET PO SCH (08:57)
[2020-05-03] MEDS: Lactobacillus 1 EACH CAP.SPRINK PO SCH (08:57)
[2020-05-03] MEDS: Loratadine 10 MG TABLET PO SCH (08:57)
[2020-05-03] MEDS: *HR* Rivaroxaban 10 MG TABLET PO SCH (17:46)
[2020-05-03] MEDS: ABACAVIR PO SCH (17:47)
[2020-05-03] MEDS: LAMIVUDINE PO SCH (17:47)
[2020-05-03] MEDS: EFAVIRENZ 600 MG PO SCH (17:48)
[2020-05-03] MEDS: GLATIRAMER 40 MG SQ SCH (17:50)
== END 2020-05-03 18:59 | disposition home health service (06) | DRG 690 ==
LOC: INPPIK 16:29
PROVIDERS: ADMIT Family Medicine; ATTEND Family Medicine